=== PATIENT | female | born 1950 | race Caucasian/White ===

== ENCOUNTER → 2021-02-24 14:12 | Outpatient (CLI) | payer MEDICARE, OTHER, SELFPAY ==
--- NOTE | ~2021-02-24 | XR_ITS ---
EXAMINATION: XR shoulder LT min 2V DATE: 02/24/2021 14:38 INDICATION: Left shoulder pain. TECHNIQUE: 4 views of left shoulder were obtained. COMPARISON: None. FINDINGS: Bone alignment is normal. No fracture. There is mild osteoarthritis of acromioclavicular miki int and glenohumeral joint. IMPRESSION: 1. Mild polyarticular osteoarthritis. Reviewed, dictated and finalized at location A.
== END ==
PROVIDERS: PCP Internal Medicine; Visit Provider Internal Medicine
DX: M19.012 Primary osteoarthritis, left shoulder (principal)
CPT/HCPCS: 73030

== ENCOUNTER 2021-07-23 12:50 | Outpatient (CLI) | payer MEDICARE, OTHER, SELFPAY ==
--- NOTE | ~2021-07-23 | DEXA_ITS ---
Bone Density Report Name: Aarti Perales Age: 70 Sex: Female Ethnicity: White Date of : 1950 Indication: monitoring treatment; height loss; cancer; postmenopausal Referring Provider: KADI GUERRA Study: Bone densitometry was performed. Exam Date: July 23, 2021 Accession number: [id number] Bone Density: Region BMD T-score Z-score Classification AP Spine (L1, L2, L3) 0.978 -0.4 1.6 Normal Femoral Neck (Left) 0.843 -0.1 1.7 Normal Total Hip (Left) 0.950 0.1 1.5 Normal Total Hip Bilateral Avg 0.961 0.2 1.6 Normal Femoral Neck (Right) 0.798 -0.5 1.3 Normal Total Hip (Right) 0.972 0.2 1.7 Normal World Health Organization criteria for BMD impression classify patients as: Normal (T-score at or above -1.0), Osteopenia (T-score between -1.0 and -2.5), or Osteoporosis (T-score at or below -2.5). 10-year Fracture Risk: FRAX not reported because: All T-scores for Spine Total, Hip Total, Femoral Neck at or above -1.0 Treated for osteoporosis Previous Exams: Region Exam Age BMD T-score BMD Change BMD Change Date g/cm2 vs Baseline vs Previous AP Spine(L1, L2, L3) 07/23/2021 70 0.978 -0.4 0.014(1.4%) 0.074(8.1%)# 05/23/2019 68 0.904 -1.0 -0.060(-6.2%)# -0.058(-6.0%)* 10/20/2014 64 0.962 -0.5 -0.002(-0.2%)# -0.002(-0.2%)# 10/09/2012 62 0.964 -0.5 Total Hip(Left) 07/23/2021 70 0.950 0.1 -0.028(-2.9%)* 0.035(3.8%)# 05/23/2019 68 0.915 -0.2 -0.063(-6.5%)# -0.077(-7.7%)* 10/20/2014 64 0.992 0.4 0.013(1.4%)# 0.013(1.4%)# 10/09/2012 62 0.979 0.3 Total Hip(Right) 07/23/2021 70 0.972 0.2 -0.032(-3.2%)* 0.024(2.5%)# 05/23/2019 68 0.948 0.1 -0.056(-5.5%)# -0.026(-2.7%) 10/20/2014 64 0.975 0.3 -0.029(-2.9%)# -0.029(-2.9%)# 10/09/2012 62 1.004 0.5 *Denotes significance at 95% confidence level, LSC for AP Spine = 0.022 g/cm2, LSC for Total Hip = 0.027 g/cm2 Clinical Information Provided by Patient: Is being treated for osteoporosis Has used the following medications: Fosamax (i.e. alendronate), Vitamin D, Calcium Has the following medical conditions: Cancer Patient maximum height was 64 Menopause Age: 52 No regular weight bearing exercise Drinks caffeinated beverages Onset of menses at age 15 Number of children 2 Impression: The patient has normal bone mass. No significant bone loss was observed. Discussion: PATIENT UNDER TREATMENT WITH NO SIGNIFICANT BMD LOSS SINCE
== END 2021-07-23 12:51 | disposition home or self-care (01) ==
LOC: ANHIMG 12:53
PROVIDERS: PCP Internal Medicine
DX: C50.419 Malignant neoplasm of upper-outer quadrant of unspecified female breast (principal); Z79.811 Long term (current) use of aromatase inhibitors; M85.851 Other specified disorders of bone density and structure, right thigh
CPT/HCPCS: 77080

== ENCOUNTER 2021-08-04 15:47 | Outpatient (CLI) | payer MEDICARE, OTHER, SELFPAY ==
--- NOTE | ~2021-08-04 | XR_ITS ---
XR lumbar spine min 4V 08/04/2021 16:47 Indication: Low back pain Procedure: 5 views of the lumbar spine Comparison: No prior studies for comparison. Findings: There is disc narrowing at all lumbar levels. There is moderate lower lumbar facet hypertro phy with grade 1 degenerative spondylolisthesis at L5-S1. No significant alteration of alignment with flexion/extension. No acute fracture is identified. There is atherosclerosis of the aorta. Impression: 1: Moderate-severe lower lumbar spondylosis. Reviewed, dictated and finalized at location A. Impression: 1: Moderate-severe lower lumbar spondylosis.
== END 2021-08-04 15:48 | disposition home or self-care (01) ==
LOC: ANHIMG 15:51
PROVIDERS: PCP Internal Medicine; Visit Provider Internal Medicine
DX: M54.9 Dorsalgia, unspecified (principal); M79.604 Pain in right leg; M79.605 Pain in left leg; M47.816 Spondylosis without myelopathy or radiculopathy, lumbar region
CPT/HCPCS: 72110

== ENCOUNTER 2021-10-04 10:56 | Outpatient (CLI) | payer MEDICARE, OTHER, SELFPAY ==
--- NOTE | ~2021-10-04 | MR_ITS ---
EXAMINATION: MR lumbar spine wo con DATE: 10/04/2021 11:38 INDICATION: Lumbar radiculopathy. TECHNIQUE: Magnetic resonance imaging (MRI) of the lumbar spine was performed without intravenous con trast. Sequences included sagittal T2-weighted FSE, sagittal T2-weighted FS FSE, sagittal T1-weighted FSE, and axial T2-weighted FSE. COMPARISON: None FINDINGS: S1 is a transitional segment. There is 4 mm anterolisthesis of L5 on S1. Vertebral body hei ghts are normal. There is moderate thoracic spondylosis. There is mildly decreased disc height at L4- L5 and moderately decreased disc height at L5-S1. The distal spinal cord signal intensity is normal. The conus medullaris is at L1. The following disc levels are specifically discussed: L1-L2: There is a right central protrusion. There is mild bilateral facet joint osteoarthritis. There is no neural foraminal stenosis. There is mild central canal stenosis. L2-L3: The disc does not extend beyond the endplate margin. There is moderate right and mild left fac et joint osteoarthritis. There is no neural foraminal stenosis. There is no central canal stenosis. L3-L4: The disc is mildly bulging. There is moderate bilateral facet joint osteoarthritis. There is m ild left neural foraminal stenosis. There is no central canal stenosis. L4-L5: The disc is bulging. There is severe bilateral facet joint osteoarthritis. There is moderate r ight and mild left neural foraminal stenosis. There is mild central canal stenosis. There is moderate stenosis of the lateral recesses. L5-S1: The disc does not extend beyond the endplate margin. There is severe bilateral facet joint ost eoarthritis. There is mild right and moderate left neural foraminal stenosis. There is mild central c anal stenosis. There is moderate stenosis of the lateral recesses. IMPRESSION: 1. Moderate lumbar spondylosis. Reviewed, dictated and finalized at location A. BAGGING MACHINE OPERATOR
== END 2021-10-04 10:57 | disposition home or self-care (01) ==
LOC: ANHIMG 10:57
PROVIDERS: PCP Internal Medicine; Visit Provider Nurse Practitioner Family
DX: M54.50 Low back pain, unspecified (principal); M47.816 Spondylosis without myelopathy or radiculopathy, lumbar region
CPT/HCPCS: 72148

== ENCOUNTER 2021-10-29 09:08 | Outpatient (CLI) | payer MEDICARE, OTHER, SELFPAY ==
[2021-10-29 10:13] LABS: Basophils Absolute Auto 0.1 K/mm3 (0.0-0.1); Basophils Percent Auto 1.1 % (0.2-1.2); Eosinophils Absolute Auto 0.1 K/mm3 (0-0.3); Eosinophils Percent Auto 1.9 % (0-4.4); Hematocrit 38.6 % (37.0-47.0); Immature Granulocyte Absolute 0.01 K/mm3 (0.00-0.031); Immature Granulocyte Percent A 0.2 % (0-0.5); Lymphocytes Absolute Auto 2.28 K/mm3 (0.9-3.2); Lymphocytes Percent Auto 36.3 % (18.3-44.2); Mean Corpuscular HGB Conc 31.1 g/dl (32-36); Mean Corpuscular Hemoglobin 28.7 pg (26-34); Mean Corpuscular Volume 92.3 fl (80-100); Mean Platelet Volume 10.3 fl (7.4-10.4); Monocytes Absolute Auto 0.4 K/mm3 (0.1-0.6); Monocytes Percent Auto 6.1 % (2.6-8.5); Neutrophils Absolute Auto 3.4 K/mm3 (1.3-6.7); Neutrophils Percent Auto 54.4 % (45.5-73.1); Platelet Count Result 261 k/mm3 (150-375); Red Blood Count 4.18 M/mm3 (4.2-5.4); Red Cell Distribution Width 13.2 % (11.5-14.5); White Blood Count 6.3 K/mm3 (4.5-10.0)
[2021-10-29 10:23] LABS: Add Urine Microscopic? YES; Appearance Urine Clear (Clear); Bilirubin Urine Negative (Negative); Blood Urine 1+ (Negative); Color Urine Colorless (Yellow); Glucose Urine UA 3+ mg/dL (Negative); Ketones Urine Negative (Negative); Leukocyte Esterase Ur Negative LEU/UL (Negative); Mucus Urine Rare /lpf; Nitrate Urine Negative (Negative); Protein Urine Negative (Negative); Squamous Epithelial Cell Urine Rare /hpf (Few); Urobilinogen Urine Negative mg/dL (<2.0); WBC Urine 0-3 /hpf
[2021-10-29 10:24] LABS: Specific Grav Ur 1.002 (1.001-1.035)
[2021-10-29 10:27] LABS: Alanine Aminotransferase 23 U/L (4-35); Albumin Level 4.1 g/dL (3.5-5.1); Alkaline Phosphatase 66 U/L (38-126); Anion Gap 8 mmol/L (8-16); Aspartate Amino Transferase 31 U/L (14-36); Bilirubin,Total 0.4 mg/dL (0.2-1.3); Blood Urea Nitrogen 14 mg/dL (7-17); Calcium 9.4 mg/dL (8.4-10.2); Carbon Dioxide 29 mmol/L (22-30); Chloride 99 mmol/L (98-107); Cholesterol 142 mg/dL (0-200); Estimated Glomerular Filt Rate > 60; Glucose 103 mg/dL (65-110); HDL Direct 35 mg/dL; Potassium 4.2 mmol/L (3.4-5.0); Sodium 136 mmol/L (137-145); Triglycerides 166 mg/dL (<150)
[2021-10-29 10:38] LABS: LDL Cholesterol Direct 72 mg/dL
[2021-10-29 11:19] LABS: Creatinine Urine 26.7 mg/dL
[2021-10-29 11:34] LABS: Free T4 Free Thyroxine 1.74 ng/mL (0.78-2.19); Vitamin D 25 Hydroxy 83.2 ng/mL
[2021-10-29 12:30] LABS: Microalbumin Urine Random < 6.0 mg/L (0-16.7)
[2021-10-29 12:40] LABS: Hemoglobin A1C 6.7 % (<5.7)
[2021-11-02 12:35] LABS: Apolipoprotein B 81 mg/dL (<90)
== END 2021-10-29 09:09 | disposition home or self-care (01) ==
PROVIDERS: PCP Internal Medicine; Visit Provider Internal Medicine
DX: E55.9 Vitamin D deficiency, unspecified (principal); E78.1 Pure hyperglyceridemia; I10 Essential (primary) hypertension; Z51.81 Encounter for therapeutic drug level monitoring; Z79.899 Other long term (current) drug therapy
CPT/HCPCS: 36415; 80053; 80061; 81001; 82043; 82172; 82306; 83036; 84439; 84443; 85025; 99212; G0463

== ENCOUNTER 2021-12-09 10:48 | Outpatient (CLI) | payer MEDICARE, OTHER, SELFPAY ==
--- NOTE | ~2021-12-09 | US_ITS ---
EXAMINATION: US carotid duplex BI DATE: 12/09/2021 12:01 INDICATION: Other specified symptoms and signs. TECHNIQUE: Grayscale, color Doppler, and pulsed Doppler images of the cervical carotid arteries were obtained. The degree of vessel stenosis is placed in one of the following categories: normal, <50%, 5 0-69%, >=70% but less than near-occlusion, near-occlusion, or total occlusion. Note that percent sten osis relative to normal distal artery lumen diameter is indirectly measured from velocity measurement s as described by Mario, et al. Radiology 2003; 229:340-346. COMPARISON: Head CT 12/21/2018 FINDINGS: RIGHT: The right common carotid artery (CCA) peak systolic velocity (PSV) is 112 cm/s. The right internal ca rotid artery (ICA) PSV is 95 cm/s. The right ICA end-diastolic velocity (EDV) is 17 cm/s. The right I CA/CCA PSV ratio is 1.2. Grayscale and color Doppler images yield an estimate of <50% diameter reduct ion from plaque in the ICA. There is antegrade flow in the right vertebral artery. LEFT: The left CCA PSV is 87 cm/s. The left ICA PSV is 69 cm/s. The left ICA EDV is 20 cm/s. The left ICA/C CA PSV ratio is 1.3. Grayscale and color Doppler images yield an estimate of <50% diameter reduction from plaque in the ICA. There is antegrade flow in the left vertebral artery. IMPRESSION: 1. <50% stenosis in the right internal carotid artery. 2. <50% stenosis in the left internal carotid artery. Reviewed, dictated and finalized at location B. WAREHOUSING ENGINEER
== END 2021-12-09 10:49 | disposition home or self-care (01) ==
LOC: ANHIMG 10:49
PROVIDERS: PCP Internal Medicine; Visit Provider Internal Medicine
DX: R09.89 Other specified symptoms and signs involving the circulatory and respiratory systems (principal); I65.23 Occlusion and stenosis of bilateral carotid arteries
CPT/HCPCS: 93880

== ENCOUNTER 2021-12-10 09:20 | Outpatient (CLI) | payer MEDICARE, OTHER, SELFPAY ==
--- NOTE | 2021-12-10 09:40 | ECHO_ITS ---
Patient Info Name: Aarti Perales Age: 71 years : 1950 Gender: Female Ht: 64 in Wt: 185 lbs BSA: 1.98 m2 HR: 69 bpm BP: 155 / 83 mmHg Technical Quality: Good Exam Date: 12/10/2021 10:42 AM Exam Location: [facility] Pulmonary Patient Status: Outpatient Admit Date: 12/10/2021 Staff Ordering Physician: Jose Mace MD Glass Maker: Leena Pritchett RDCS Attending Provider: Jose Mace MD Referring Physician: Nakita CHIRINOS; Exam Type: CA echo doppler color flow Study Info Indications R01.1 - cardiac murmur Complete two-dimensional, color flow and Doppler transthoracic echocardiogram is performed. Summary 1. Complete two-dimensional, color flow and Doppler transthoracic echocardiogram is performed. 2. Left ventricular chamber dimension is normal. 3. Left ventricular systolic function is normal, estimated at 60-65%. 4. The left ventricular diastolic function is grade I diastolic dysfunction. 5. E/e' 11 is mildly elevated. 6. There is mild aortic valve sclerosis. 7. There is trace tricuspid valve regurgitation. 8. No pulmonary hypertension, estimated pulmonary arterial systolic pressure is 29 mmHg. Left Ventricle E/e' 11 is mildly elevated. Left ventricular chamber dimension is normal. Left ventricular systolic function is normal, estimated at 60-65%. The left ventricular diastolic function is grade I diastolic dysfunction. Right Ventricle Right ventricular chamber dimension is normal. Right ventricular systolic function is normal. Left Atria Left atrial chamber dimension is normal. Right Atria Right atrial chamber dimension is normal. Aortic Valve The aortic valve is trileaflet. There is mild aortic valve sclerosis. There is no aortic valve stenosis. There is no aortic valve regurgitation. Pulmonic Valve There is no pulmonic regurgitation. Mitral Valve There is no mitral valve stenosis. There is no mitral valve regurgitation. Tricuspid Valve There is trace tricuspid valve regurgitation. No pulmonary hypertension, estimated pulmonary arterial systolic pressure is 29 mmHg. Pericardium/Pleural There is no pericardial effusion. Inferior Vena Cava Normal inferior vena cava with >50% collapse upon inspiration consistent with normal right atrial pressure, 5 mmHg. Aorta The aortic root size at the sinus of Valsalva is normal. Left Ventricular Outflow Tract Name Value Normal LVOT 2D LVOT Diameter 2.0 cm LVOT Doppler LVOT Peak Gradient 6 mmHg LVOT Mean Gradient 3 mmHg LVOT VTI 26 cm LVOT VTI/AV VTI Ratio 0.8 LVOT Stroke Volume 84 ml Pulmonic Valve Name Value Normal PV Doppler PV Peak Gradient 3 mmHg Mitral Valve
== END 2021-12-10 09:21 | disposition home or self-care (01) ==
LOC: ANHCARD 09:21
PROVIDERS: PCP Internal Medicine; Visit Provider Internal Medicine
DX: R01.1 Cardiac murmur, unspecified (principal); I10 Essential (primary) hypertension; I35.8 Other nonrheumatic aortic valve disorders; Z79.899 Other long term (current) drug therapy
CPT/HCPCS: 93306

== ENCOUNTER 2022-03-18 09:23 | Outpatient (CLI) | payer MEDICARE, OTHER, SELFPAY ==
[2022-03-18 10:24] LABS: Alanine Aminotransferase 21 U/L (4-35); Albumin Level 4.1 g/dL (3.5-5.1); Alkaline Phosphatase 68 U/L (38-126); Anion Gap 9 mmol/L (8-16); Aspartate Amino Transferase 31 U/L (14-36); Bilirubin,Total 0.4 mg/dL (0.2-1.3); Blood Urea Nitrogen 11 mg/dL (7-17); Calcium 9.1 mg/dL (8.4-10.2); Carbon Dioxide 28 mmol/L (22-30); Chloride 102 mmol/L (98-107); Cholesterol 129 mg/dL (0-200); Estimated Glomerular Filt Rate > 60; Glucose 99 mg/dL (65-110); HDL Direct 36 mg/dL; Potassium 3.7 mmol/L (3.4-5.0); Sodium 139 mmol/L (137-145); Triglycerides 150 mg/dL (<150)
[2022-03-18 10:27] LABS: Hemoglobin A1C 6.4 % (<5.7)
[2022-03-18 10:35] LABS: LDL Cholesterol Direct 53 mg/dL
== END 2022-03-18 09:24 | disposition home or self-care (01) ==
PROVIDERS: PCP Internal Medicine; Visit Provider Internal Medicine
DX: E11.9 Type 2 diabetes mellitus without complications (principal); E78.1 Pure hyperglyceridemia; I10 Essential (primary) hypertension; Z79.899 Other long term (current) drug therapy
CPT/HCPCS: 36415; 80053; 80061; 83036; 99212; G0463

== ENCOUNTER 2022-09-29 10:04 | Outpatient (CLI) | payer MEDICARE, OTHER, SELFPAY ==
[2022-09-29 11:20] LABS: Alanine Aminotransferase 23 U/L (6-35); Albumin Level 4.4 g/dL (3.5-5.1); Alkaline Phosphatase 79 U/L (38-126); Anion Gap 12 mmol/L (8-16); Aspartate Amino Transferase 33 U/L (14-36); Bilirubin,Total 0.5 mg/dL (0.2-1.3); Blood Urea Nitrogen 16 mg/dL (7-17); Calcium 8.9 mg/dL (8.4-10.2); Carbon Dioxide 28 mmol/L (22-30); Chloride 99 mmol/L (98-107); Cholesterol 136 mg/dL (0-200); Estimated Glomerular Filt Rate > 60; Glucose 100 mg/dL (65-110); HDL Direct 45 mg/dL; Potassium 4.2 mmol/L (3.4-5.0); Sodium 139 mmol/L (137-145); Triglycerides 104 mg/dL (<150)
[2022-09-29 11:31] LABS: LDL Cholesterol Direct 66 mg/dL
[2022-09-29 11:49] LABS: Thyroid Stimulating Hormone 0.626 uIU/mL (0.465-4.680)
[2022-09-29 11:57] LABS: Creatinine Urine 33.7 mg/dL
[2022-09-29 12:07] LABS: MALB Creatinine Ratio < 17.8 mg/g (0-30); Microalbumin Urine Random < 6.0 mg/L (0-16.7)
[2022-09-29 12:55] LABS: Free T4 Free Thyroxine 1.31 ng/mL (0.78-2.19)
== END 2022-09-29 10:05 | disposition home or self-care (01) ==
LOC: ANHLAB 10:07
PROVIDERS: PCP Internal Medicine; Visit Provider Internal Medicine
DX: E78.5 Hyperlipidemia, unspecified (principal); E11.9 Type 2 diabetes mellitus without complications; Z79.899 Other long term (current) drug therapy; Z13.29 Encounter for screening for other suspected endocrine disorder; I10 Essential (primary) hypertension
CPT/HCPCS: 36415; 80053; 80061; 82043; 84439; 84443; 99212; G0463

== ENCOUNTER 2023-01-11 09:01 | Outpatient (CLI) | payer MEDICARE, OTHER, SELFPAY ==
[2023-01-11 09:36] LABS: Basophils Absolute Auto 0.1 K/mm3 (0.0-0.1); Basophils Percent Auto 0.9 % (0.2-1.2); Eosinophils Absolute Auto 0.1 K/mm3 (0-0.3); Eosinophils Percent Auto 1.4 % (0-4.4); Hematocrit 37.9 % (37.0-47.0); Hemoglobin 11.7 g/dL (12.0-15.0); Immature Granulocyte Absolute 0.02 K/mm3 (0.00-0.031); Immature Granulocyte Percent A 0.3 % (0-0.5); Lymphocytes Absolute Auto 2.24 K/mm3 (0.9-3.2); Lymphocytes Percent Auto 38.1 % (18.3-44.2); Mean Corpuscular HGB Conc 30.9 g/dl (32-36); Mean Corpuscular Hemoglobin 28.1 pg (26-34); Mean Corpuscular Volume 90.9 fl (80-100); Mean Platelet Volume 10.2 fl (7.4-10.4); Monocytes Absolute Auto 0.3 K/mm3 (0.1-0.6); Monocytes Percent Auto 4.4 % (2.6-8.5); Neutrophils Absolute Auto 3.2 K/mm3 (1.3-6.7); Neutrophils Percent Auto 54.9 % (45.5-73.1); Platelet Count Result 269 k/mm3 (150-375); Red Blood Count 4.17 M/mm3 (4.2-5.4); Red Cell Distribution Width 13.3 % (11.5-14.5); White Blood Count 5.9 K/mm3 (4.5-10.0)
[2023-01-11 09:48] LABS: Alanine Aminotransferase 19 U/L (6-35); Albumin Level 4.3 g/dL (3.5-5.1); Alkaline Phosphatase 76 U/L (38-126); Anion Gap 7 mmol/L (8-16); Aspartate Amino Transferase 25 U/L (14-36); Bilirubin,Total 0.5 mg/dL (0.2-1.3); Blood Urea Nitrogen 12 mg/dL (7-17); Carbon Dioxide 32 mmol/L (22-30); Chloride 100 mmol/L (98-107); Cholesterol 147 mg/dL (0-200); Estimated Glomerular Filt Rate > 60; Glucose 103 mg/dL (65-110); HDL Direct 52 mg/dL; Potassium 4.2 mmol/L (3.4-5.0); Sodium 139 mmol/L (137-145); Triglycerides 106 mg/dL (<150)
[2023-01-11 09:51] LABS: Hemoglobin A1C 6.2 % (<5.7)
[2023-01-11 09:59] LABS: LDL Cholesterol Direct 64 mg/dL
[2023-01-11 10:11] LABS: Free T4 Free Thyroxine 1.21 ng/mL (0.78-2.19); Vitamin D 25 Hydroxy 74.9 ng/mL
== END 2023-01-11 09:02 | disposition home or self-care (01) ==
LOC: ANHLAB 09:02
PROVIDERS: PCP Internal Medicine; Visit Provider Internal Medicine
DX: E11.9 Type 2 diabetes mellitus without complications (principal); E78.5 Hyperlipidemia, unspecified; Z13.29 Encounter for screening for other suspected endocrine disorder; I10 Essential (primary) hypertension; E55.9 Vitamin D deficiency, unspecified; Z79.899 Other long term (current) drug therapy
CPT/HCPCS: 36415; 80053; 80061; 82306; 83036; 84439; 84443; 85025; 99212; G0463

== ENCOUNTER 2023-07-10 08:58 | Outpatient (CLI) | payer MEDICARE, OTHER, SELFPAY ==
[2023-07-10 10:06] LABS: Basophils Percent Auto 0.1 % (0.2-1.2); Eosinophils Absolute Auto 0.1 K/mm3 (0-0.3); Eosinophils Percent Auto 1.1 % (0-4.4); Hematocrit 36.3 % (37.0-47.0); Hemoglobin 11.5 g/dL (12.0-15.0); Immature Granulocyte Absolute 0.03 K/mm3 (0.00-0.031); Immature Granulocyte Percent A 0.4 % (0-0.5); Lymphocytes Absolute Auto 2.35 K/mm3 (0.9-3.2); Mean Corpuscular HGB Conc 31.7 g/dl (32-36); Mean Corpuscular Hemoglobin 29.8 pg (26-34); Mean Platelet Volume 9.8 fl (7.4-10.4); Monocytes Absolute Auto 0.4 K/mm3 (0.1-0.6); Monocytes Percent Auto 4.9 % (2.6-8.5); Neutrophils Percent Auto 63.5 % (45.5-73.1); Platelet Count Result 289 k/mm3 (150-375); Red Blood Count 3.86 M/mm3 (4.2-5.4); Red Cell Distribution Width 12.7 % (11.5-14.5); White Blood Count 7.8 K/mm3 (4.5-10.0)
[2023-07-10 10:18] LABS: Alanine Aminotransferase 16 U/L (6-35); Albumin Level 4.3 g/dL (3.5-5.1); Alkaline Phosphatase 59 U/L (38-126); Anion Gap 5 mmol/L (8-16); Aspartate Amino Transferase 24 U/L (14-36); Bilirubin,Total 0.5 mg/dL (0.2-1.3); Blood Urea Nitrogen 15 mg/dL (7-17); Calcium 9.1 mg/dL (8.4-10.2); Carbon Dioxide 31 mmol/L (22-30); Chloride 91 mmol/L (98-107); Cholesterol 124 mg/dL (0-200); Estimated Glomerular Filt Rate 49; Glucose 97 mg/dL (65-110); HDL Direct 42 mg/dL; Potassium 4.3 mmol/L (3.4-5.0); Sodium 127 mmol/L (137-145); Triglycerides 171 mg/dL (<150)
[2023-07-10 10:29] LABS: LDL Cholesterol Direct 55 mg/dL
[2023-07-10 10:47] LABS: Creatinine Urine 30.7 mg/dL
[2023-07-10 10:47] LABS: Thyroid Stimulating Hormone 0.947 uIU/mL (0.465-4.680)
[2023-07-10 11:35] LABS: MALB Creatinine Ratio < 19.5 mg/g (0-30); Microalbumin Urine Random < 6.0 mg/L (0-16.7)
== END 2023-07-10 08:59 | disposition home or self-care (01) ==
PROVIDERS: PCP Internal Medicine; Visit Provider Internal Medicine
DX: E78.5 Hyperlipidemia, unspecified (principal); I10 Essential (primary) hypertension; Z79.899 Other long term (current) drug therapy; Z13.29 Encounter for screening for other suspected endocrine disorder; E11.9 Type 2 diabetes mellitus without complications
CPT/HCPCS: 36415; 80053; 80061; 82043; 83036; 84439; 84443; 85025; 99212; G0463

== ENCOUNTER 2023-09-05 10:47 | Outpatient (CLI) | payer MEDICARE, OTHER, SELFPAY ==
[2023-09-05 11:49] LABS: CRP 1.3 mg/dL (<1.0)
[2023-09-05 11:53] LABS: Complement C3 123 mg/dL (88-165)
[2023-09-05 11:57] LABS: Erythrocyte Sedimentation Rate 18 mm/hr (0-20)
[2023-09-08 17:41] LABS: Complement Total CH50 64 U/mL (31-60)
== END 2023-09-05 10:48 | disposition home or self-care (01) ==
PROVIDERS: PCP Internal Medicine; Visit Provider Internal Medicine
DX: L50.9 Urticaria, unspecified (principal); R21 Rash and other nonspecific skin eruption
CPT/HCPCS: 36415; 85652; 86003; 86140; 86160; 86162

== ENCOUNTER 2023-11-01 12:59 | Outpatient (CLI) | payer MEDICARE, OTHER, SELFPAY ==
--- NOTE | ~2023-11-01 | MR_ITS ---
MRI of the brain Clinical History: Syncope Technique: Axial and sagittal T1-weighted images were acquired. These were followed by axial T2-weigh yovanny, diffusion weighted, gradient, and FLAIR images. Following intravenous administration of 14 cc Mu ltiHance gadolinium, T1-weighted fat-sat imaging was performed in the axial, coronal, and sagittal pl anes. Findings: There is no acute infarct, intracranial hemorrhage, or mass lesion. There are mild chronic white matter changes in the periventricular white matter bilaterally. Ventricles and subarachnoid spaces are unremarkable. Orbits are unremarkable. Paranasal sinuses and m astoid air cells are clear. Major intracranial flow voids appear intact. Sagittal midline structures are intact. No abnormal postcontrast enhancement identified. IMPRESSION: Mild chronic microvascular ischemic changes, otherwise unremarkable exam. Reviewed, dictated and finalized at location . ARCH CONTRACTS SUPERVISOR
== END 2023-11-01 13:00 | disposition home or self-care (01) ==
PROVIDERS: PCP Internal Medicine; Visit Provider Internal Medicine
DX: R41.89 Other symptoms and signs involving cognitive functions and awareness (principal); R55 Syncope and collapse
CPT/HCPCS: 70553; A9577

== ENCOUNTER 2023-11-02 08:44 | Outpatient (CLI) | payer MEDICARE, OTHER, SELFPAY ==
--- NOTE | 2023-11-02 08:57 | ECHO_ITS ---
Patient Info Name: Aarti Perales Age: 73 years : 1950 Gender: Female Ht: 63 in Wt: 162 lbs BSA: 1.83 m2 HR: 85 bpm BP: 122 / 73 mmHg Technical Quality: Fair Exam Date: 11/02/2023 9:06 AM Exam Location: Echo Lab Patient Status: Outpatient Admit Date: 11/02/2023 Staff Ordering Physician: Jose Mace MD Nutrition Faculty Member: Leena Pritchett RDCS Attending Provider: Jose Mace MD Referring Physician: Nakita CHIRINOS; Exam Type: CA echo doppler color flow Study Info Indications - syncope /collaspe Complete two-dimensional, color flow and Doppler transthoracic echocardiogram is performed. Summary 1. Complete two-dimensional, color flow and Doppler transthoracic echocardiogram is performed. 2. Left ventricular chamber dimension is normal. 3. Left ventricular systolic function is normal, estimated at 60-65%. 4. The left ventricular diastolic function is grade I diastolic dysfunction. 5. E/e' 8 is minimally elevated. 6. Left atrial chamber dimension is mildly enlarged. 7. There is mild to moderate tricuspid valve regurgitation. 8. No pulmonary hypertension, estimated pulmonary arterial systolic pressure is 30 mmHg. Left Ventricle E/e' 8 is minimally elevated. Left ventricular chamber dimension is normal. Left ventricular systolic function is normal, estimated at 60-65%. The left ventricular diastolic function is grade I diastolic dysfunction. Right Ventricle Right ventricular chamber dimension is normal. Right ventricular systolic function is normal. Left Atria Left atrial chamber dimension is mildly enlarged. Right Atria Right atrial chamber dimension is normal. Aortic Valve The aortic valve is trileaflet. There is no aortic valve stenosis. There is no aortic valve regurgitation. Pulmonic Valve There is no pulmonic regurgitation. Mitral Valve There is no mitral valve stenosis. There is no mitral valve regurgitation. Tricuspid Valve There is mild to moderate tricuspid valve regurgitation. No pulmonary hypertension, estimated pulmonary arterial systolic pressure is 30 mmHg. Pericardium/Pleural There is no pericardial effusion. Inferior Vena Cava Normal inferior vena cava with >50% collapse upon inspiration consistent with normal right atrial pressure, 5 mmHg. Aorta The aortic root size at the sinus of Valsalva is normal. Left Ventricular Outflow Tract Name Value Normal LVOT 2D LVOT Diameter 2.0 cm LVOT Doppler LVOT Peak Gradient 5 mmHg LVOT Mean Gradient 3 mmHg LVOT VTI 22 cm LVOT VTI/AV VTI Ratio 0.9 LVOT Stroke Volume 66 ml LVOT CO 15.6 l/min LVOT CI 8.5 l/min/m2 Pulmonic Valve Name Value Normal RVOT Doppler RVOT Peak Gradient 1 mmHg PV Doppler
--- NOTE | 2023-11-08 11:06 | WPDHOLTEREM ---
Holter/Event Monitor Holter/Event Monitor Date of procedure: 11/08/23 Holter/Event Procedure: 48 Hr Holter Monitor Diagnosis: Syncope and collapse Indications: Syncope and collapse Image/Tracing Quality: 48 hour Holter Finding: A total of 47 hours and 59 minutes was recorded and analyzed Underlying sinus rhythm with heart rate variability between 51 and 124 beats per minute with an average heart rate of 79 beats per minute. Low frequency of ventricular ectopy totaling 30 PVCs and 1 ventricular couplet. No sustained or nonsustained runs of ventricular arrhythmia Low-frequency supraventricular ectopy totaling 79 beats. This consisted of 113 beat atrial run at a rate of 140 beats per minute. There were also 2 couplets and 59 isolated premature atrial contractions. Three beat run a pattern of atrial bigeminy. Longest RR interval was 1.3 seconds. Low complex arrhythmia, heart block or pauses. No patient triggered events noted Conclusion: 1. Unremarkable 48 hour Holter monitor with average heart rate of 79 beats per minute and in sinus rhythm. 2. No significant pauses or heart block 3. Low frequency ventricular ectopy 4. Low frequency supraventricular ectopy including one13 beat run of PSVT at a rate of 140 beats per minute 5. No patient triggered events noted
== END 2023-11-02 08:45 | disposition home or self-care (01) ==
LOC: ANHCARD 08:44
PROVIDERS: PCP Internal Medicine; Visit Provider Internal Medicine
DX: R55 Syncope and collapse (principal); I07.1 Rheumatic tricuspid insufficiency
CPT/HCPCS: 93225; 93226; 93306

== ENCOUNTER 2023-11-24 08:55 | Outpatient (CLI) | payer MEDICARE, OTHER, SELFPAY ==
[2023-11-24 09:44] LABS: Alanine Aminotransferase 16 U/L (6-35); Alkaline Phosphatase 61 U/L (38-126); Anion Gap 6 mmol/L (8-16); Aspartate Amino Transferase 26 U/L (14-36); Bilirubin,Total 0.5 mg/dL (0.2-1.3); Blood Urea Nitrogen 20 mg/dL (7-17); Calcium 9.7 mg/dL (8.4-10.2); Carbon Dioxide 32 mmol/L (22-30); Chloride 96 mmol/L (98-107); Cholesterol 142 mg/dL (0-200); Estimated Glomerular Filt Rate > 60; Glucose 98 mg/dL (65-110); HDL Direct 44 mg/dL; Potassium 4.3 mmol/L (3.4-5.0); Sodium 134 mmol/L (137-145); Triglycerides 193 mg/dL (<150)
[2023-11-24 09:54] LABS: LDL Cholesterol Direct 63 mg/dL
[2023-11-24 11:09] LABS: Hemoglobin A1C 6.2 % (<5.7)
== END 2023-11-24 08:56 | disposition home or self-care (01) ==
PROVIDERS: PCP Internal Medicine; Visit Provider Internal Medicine
DX: E11.9 Type 2 diabetes mellitus without complications (principal); E78.5 Hyperlipidemia, unspecified; I10 Essential (primary) hypertension
CPT/HCPCS: 36415; 80053; 80061; 83036; 99212; G0463

== ENCOUNTER 2024-01-08 10:54 | Outpatient (CLI) | payer MEDICARE, OTHER, SELFPAY | END 2024-01-08 10:55 | disposition home or self-care (01) | LOC: ANHAUDIO 10:55 | PROVIDERS: PCP Internal Medicine; Visit Provider Internal Medicine | DX: H90.3 Sensorineural hearing loss, bilateral (principal); H90.A21 Sensorineural hearing loss, unilateral, right ear, with restricted hearing on the contralateral side | CPT/HCPCS: 92557; 92567 ==

== ENCOUNTER 2024-01-17 11:34 | Outpatient (CLI) | payer MEDICARE, OTHER, SELFPAY | END 2024-01-17 11:35 | disposition home or self-care (01) | LOC: ANHLAB 11:37 | PROVIDERS: PCP Internal Medicine; Visit Provider Allergy & Immunology | DX: L50.1 Idiopathic urticaria (principal) | CPT/HCPCS: 36415; 86038 ==

== ENCOUNTER 2024-04-30 11:16 | Outpatient (CLI) | payer MEDICARE, OTHER, SELFPAY ==
[2024-04-30 11:44] LABS: Eosinophils Absolute Auto 0.1 K/mm3 (0-0.3); Hematocrit 33.6 % (37.0-47.0); Hemoglobin 10.5 g/dL (12.0-15.0); Immature Granulocyte Absolute 0.01 K/mm3 (0.00-0.031); Immature Granulocyte Percent A 0.2 % (0-0.5); Lymphocytes Absolute Auto 2.56 K/mm3 (0.9-3.2); Lymphocytes Percent Auto 41.5 % (18.3-44.2); Mean Corpuscular HGB Conc 31.3 g/dl (32-36); Mean Corpuscular Volume 89.6 fl (80-100); Mean Platelet Volume 10.3 fl (7.4-10.4); Monocytes Absolute Auto 0.3 K/mm3 (0.1-0.6); Monocytes Percent Auto 5.5 % (2.6-8.5); Neutrophils Absolute Auto 3.2 K/mm3 (1.3-6.7); Neutrophils Percent Auto 51.8 % (45.5-73.1); Platelet Count Result 241 k/mm3 (150-375); Red Blood Count 3.75 M/mm3 (4.2-5.4); Red Cell Distribution Width 13.7 % (11.5-14.5); White Blood Count 6.2 K/mm3 (4.5-10.0)
[2024-04-30 12:05] LABS: Alanine Aminotransferase 14 U/L (6-35); Albumin Level 4.6 g/dL (3.5-5.1); Alkaline Phosphatase 69 U/L (38-126); Anion Gap 7 mmol/L (4-12); Aspartate Amino Transferase 26 U/L (14-36); Bilirubin,Total 0.6 mg/dL (0.2-1.3); Blood Urea Nitrogen 17 mg/dL (7-17); Calcium 9.4 mg/dL (8.4-10.2); Carbon Dioxide 29 mmol/L (22-30); Chloride 100 mmol/L (98-107); Cholesterol 127 mg/dL (0-200); Estimated Glomerular Filt Rate 55; Glucose 101 mg/dL (65-110); HDL Direct 49 mg/dL; Potassium 4.4 mmol/L (3.4-5.0); Sodium 136 mmol/L (137-145); Triglycerides 141 mg/dL (<150)
[2024-04-30 12:14] LABS: Appearance Urine Clear (Clear); Bacteria Urine None Seen /hpf; Bilirubin Urine Negative (Negative); Blood Urine Negative (Negative); Color Urine Yellow (Yellow); Glucose Urine UA Negative (Negative); Ketones Urine Negative (Negative); Leukocyte Esterase Ur Trace LEU/UL (Negative); Nitrate Urine Negative (Negative); Non Pathogenic Casts 0-2; Protein Urine Negative (Negative); RBC Urine 0-2 /hpf (0-2); Specific Grav Ur 1.007 (1.001-1.035); Squamous Epithelial Cell Urine None Seen /hpf (Few); Urobilinogen Urine 0.2 mg/dL (<2.0); WBC Urine 0-5 /hpf (0-3); pH Urine 6.5 (5.0-9.0)
[2024-04-30 12:15] LABS: Add Urine Microscopic? YES
[2024-04-30 12:16] LABS: LDL Cholesterol Direct 58 mg/dL
[2024-04-30 12:34] LABS: Hemoglobin A1C 5.8 % (<5.7); Thyroid Stimulating Hormone 0.687 uIU/mL (0.465-4.680)
[2024-04-30 12:56] LABS: Free T4 Free Thyroxine 1.07 ng/mL (0.78-2.19); Vitamin D 25 Hydroxy 70.9 ng/mL
[2024-04-30 15:41] LABS: Iron 83 ug/dL (37-170)
[2024-04-30 15:53] LABS: Percent Iron Saturation 18 % (20-50)
[2024-04-30 16:18] LABS: Ferritin 7.45 ng/mL (11.1-264)
== END 2024-04-30 11:17 | disposition home or self-care (01) ==
LOC: ANHLAB 11:20
PROVIDERS: PCP Internal Medicine; Visit Provider Internal Medicine
DX: D64.9 Anemia, unspecified (principal); E55.9 Vitamin D deficiency, unspecified; Z13.29 Encounter for screening for other suspected endocrine disorder; Z79.899 Other long term (current) drug therapy; E78.5 Hyperlipidemia, unspecified; E11.9 Type 2 diabetes mellitus without complications; I10 Essential (primary) hypertension
CPT/HCPCS: 36415; 80053; 80061; 81001; 82306; 82728; 83036; 83540; 83550; 84439; 84443; 85025

== ENCOUNTER 2024-09-06 11:57 | Outpatient (CLI) | payer MEDICARE, OTHER, SELFPAY ==
[2024-09-06 12:54] LABS: Alanine Aminotransferase 20 U/L (6-35); Albumin Level 4.3 g/dL (3.5-5.1); Alkaline Phosphatase 71 U/L (38-126); Anion Gap 10 mmol/L (4-12); Aspartate Amino Transferase 32 U/L (14-36); Bilirubin,Total 0.4 mg/dL (0.2-1.3); Blood Urea Nitrogen 13 mg/dL (7-17); Calcium 9.2 mg/dL (8.4-10.2); Carbon Dioxide 28 mmol/L (22-30); Chloride 98 mmol/L (98-107); Cholesterol 146 mg/dL (0-200); Estimated Glomerular Filt Rate > 60; Glucose 113 mg/dL (65-110); HDL Direct 46 mg/dL; Potassium 4.7 mmol/L (3.4-5.0); Sodium 136 mmol/L (137-145); Triglycerides 159 mg/dL (<150)
[2024-09-06 13:04] LABS: LDL Cholesterol Direct 59 mg/dL
[2024-09-06 13:10] LABS: Hemoglobin A1C 6.1 % (<5.7)
== END 2024-09-06 11:58 | disposition home or self-care (01) ==
LOC: ANHLAB 12:02
PROVIDERS: PCP Internal Medicine; Visit Provider Internal Medicine
DX: I10 Essential (primary) hypertension (principal); E11.9 Type 2 diabetes mellitus without complications; E78.5 Hyperlipidemia, unspecified
CPT/HCPCS: 36415; 80053; 80061; 83036

== ENCOUNTER 2025-01-21 09:26 | Outpatient (CLI) | payer MEDICARE, OTHER, SELFPAY ==
[2025-01-21 10:17] LABS: Basophils Percent Auto 0.1 % (0.2-1.2); Eosinophils Absolute Auto 0.1 K/mm3 (0-0.3); Eosinophils Percent Auto 1.1 % (0-4.4); Hematocrit 33.4 % (37.0-47.0); Hemoglobin 10.1 g/dL (12.0-15.0); Immature Granulocyte Absolute 0.02 K/mm3 (0.00-0.031); Immature Granulocyte Percent A 0.3 % (0-0.5); Lymphocytes Absolute Auto 2.38 K/mm3 (0.9-3.2); Mean Corpuscular HGB Conc 30.2 g/dl (32-36); Mean Corpuscular Hemoglobin 27.7 pg (26-34); Mean Corpuscular Volume 91.5 fl (80-100); Mean Platelet Volume 10.9 fl (7.4-10.4); Monocytes Absolute Auto 0.5 K/mm3 (0.1-0.6); Monocytes Percent Auto 6.2 % (2.6-8.5); Neutrophils Absolute Auto 4.3 K/mm3 (1.3-6.7); Neutrophils Percent Auto 59.3 % (45.5-73.1); Platelet Count Result 283 k/mm3 (150-375); Red Blood Count 3.65 M/mm3 (4.2-5.4); Red Cell Distribution Width 12.7 % (11.5-14.5); White Blood Count 7.2 K/mm3 (4.5-10.0)
--- OUTSIDE RECORDS SUMMARY | 2025-01-21 10:27 | XMS_ITS | Encounter Summary ---
Author Organization [facility] Address [address] [place] [address] Phone Care Team Providers Care Cheese Specialist Name Role Phone Jose Mace MD Primary Care Provider [phone] Pao Dietrich PIPE LINE REPAIRER Unavailable [phone] Encounter Details Date Type Department Care Team (Latest Contact Info) Description 07/23/2021 Orders Only [facility] Scanning, Provider Social History Tobacco Use Types Packs/Day Years Used Date Smoking Tobacco: Never Smokeless Tobacco: Never Alcohol Use Standard Drinks/Week Comments Never 0 (1 standard drink = 0.6 oz pur e alcohol) AUDIT-C Answer Date Recorded Frequency of Alcohol Consumption Never 05/21/2019 Average Number of Drinks Not on file 019 Frequency of Binge Drinking Not on file 04/28 Comments No Sex and Gender Information Value Date Recorded Sex Assigned at Not on file Legal Sex Female 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 Gender Identity Not on file Sexual Orientation Not on file Occupation Industry Job Start Date Job End Date Homemaker Not on file Not on file Not on file documented as of this encounter Plan of Treatment Not on file documented as of this encounter Procedures Procedure Name Priority Date/Time Associated Diagnosis Comments SCAN - RADIOLOGY/IMAGING 07/23/2021 documented in this encounter Results * SCAN - RADIOLOGY/IMAGING (07/23/2021) Anatomical Region Laterality Modality Other us Provider Scanning Final Result documented in this encounter Visit Diagnoses Not on filedocumented in this encounter Care Teams Cheese Specialist Relationship Specialty Start Date End Date Jose Mace MD [address] [place] [address] PCP - General 02/01/18 Pao Dietrich NP [address] [place] [address] Nurse Practitioner Medical Oncology 05/19/20 documented as of this encounter
--- OUTSIDE RECORDS SUMMARY | 2025-01-21 10:27 | XMS_ITS | Encounter Summary ---
Author Organization [facility] Address [address] [place] [address] Phone Care Team Providers Care Bounty Trapper Name Role Phone Jose Mace MD Primary Care Provider [phone] Pao Dietrich RETAIL LOSS PREVENTION INVESTIGATOR Unavailable [phone] Encounter Details Date Type Department Care Team (Late st Contact Info) Description 05/27/2019 Telephone [facility] Oncology [address] [place] [address] Eloise White Social History Tobacco Use Types Packs/Day Years [...] on file Legal Sex Female 8:09 PM PULLER THROUGH Gender Identity Not on file Sexual Orientation Not on file Occupation Industry Job Start Date Job End Date Homemaker Not on file Not on file Not on file documented as of this encounter Plan of Treatment Not on file documented as of this encounter Visit Diagnoses Not on filedocumented in this encounter Care Teams Bounty Trapper Relationship Specialty Start Date End Date Jose Mace MD [address] [facility] [address] [place] [id number] PCP - General 02/01/18 Pao Dietrich NP [address] [facility] [address] [place] [place] [address] [place] [address] Nurse Practitioner Medical Oncology 05/19/20 documented as of this encounter
--- OUTSIDE RECORDS SUMMARY | 2025-01-21 10:27 | XMS_ITS | Encounter Summary ---
Author Organization [facility] Address [address] [place] [address] Phone Care Team Providers Care Economics Analyst Name Role Phone Jose Mace MD Primary Care Provider [phone] Pao Dietrich EXERCISE PHYSIOLOGY PROFESSOR Unavailable Reason for Visit * Reason Onset Date Comments PROVIDER & SCHEDULE UPDATE 03/28/2019 Encounter Details Date Type Department Care Team (Late st Contact Info) Description 03/28/2019 Telephone [facility] Oncology [address] [place] [address] Mimi Moreau [facility] PROVIDER & SCHEDULE UPDATE Social History Tobacco Use Types Packs/Day Years Used Date Smoking Tobacco: Never Smokeless Tobacco: Never Comments No Sex and Gender Information Value Date Recorded Sex Assigned at Not on file Legal Sex Female 8:09 PM RN [facility] Gender Identity Not on file Sexual Orientation Not on file documented as of this encounter Plan of Treatment Not on file documented as of this encounter Visit Diagnoses Not on filedocumented in this encounter Care Teams Economics Analyst Relationship Specialty Start Date End Date Jose Mace MD [address] [place] [address] PCP - General 02/01/18 Pao Dietrich NP [address] [place] [address] Nurse Practitioner Medical Oncology 05/19/20 documented as of this encounter
--- OUTSIDE RECORDS SUMMARY | 2025-01-21 10:27 | XMS_ITS | Encounter Summary ---
Author Organization [facility] Address [address] [place] [address] Phone Care Team Providers Care Chemistry Quality Control Analyst Name Role Phone Jose Mace MD Primary Care Provider Pao Dietrich CARE COORDINATION MANAGER Unavailable [phone] Reason for Visit * Reason Onset Date Comments SCHEDULE UPDATE 05/03/2019 Encounter Details Date Type Department Care Team (Late st Contact Info) Description 05/03/2019 Telephone [facility] Oncology [address] [place] [address] Mimi Moreau, [facility] SCHEDULE UPDATE Social History Tobacco Use Types Packs/Day Years Used Date Smoking Tobacco: Never Smokeless Tobacco: Never Comments No Sex and Gender Information Value Date Recorded Sex Assigned at Not on file Legal 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
--- OUTSIDE RECORDS SUMMARY | 2025-01-21 10:27 | XMS_ITS | Encounter Summary ---
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 Gender Identity Not on file Sexual Orientation Not on file Occupation Industry Job Start Date Job End Date Homemaker Not on file Not on file Not on file documented as of this encounter Plan of Treatment Not on file documented as of this encounter Procedures Procedure Name Priority Date/Time Associated Diagnosis Comments SCAN - RADIOLOGY/IMAGING 05/23/2019 documented in this encounter Results * SCAN - RADIOLOGY/IMAGING (05/23/2019) Anatomical Region Laterality Modality Other us Provider Scanning Final Result documented in this encounter Visit Diagnoses Not on filedocumented in this encounter Care Teams Displayer Relationship Specialty Start Date End Date Jose Mace MD [address] [place] [address] PCP - General 02/01/18 Pao Dietrich NP [address] [place] [address] Nurse Practitioner Medical Oncology 05/19/20 documented as of this encounter
--- OUTSIDE RECORDS SUMMARY | 2025-01-21 10:28 | XMS_ITS | Referral Summary ---
Author Organization [facility] Address [address] [address] Care Team Providers Care Podiatric Technician Name Role Phone Jose Mace MD Primary Care Provider [phone] Pao Dietrich PARALEGAL LEGAL SECRETARY Unavailable [phone] Allergies No known active allergies Medications psyllium seed, sugar, powder Active metFORMIN (GLUCOPHAGE) 1,000 mg tablet 1 tablet (1,000 mg total) 2 times daily 0 Active [id number] a-fish oil 300-1,000 mg capsule 2 capsules daily. Active pantoprazole DR (PROTONIX) 40 mg EC tablet 0 Active atorvastatin (LIPITOR) 40 mg tablet Take 1 tablet (40 mg total) by mouth daily Active gabapentin (NEURONTIN) 600 mg tablet Take 1 tablet (600 mg total) by mouth 3 (three) times a day Active candesartan (ATACAND) 32 mg tablet 1 Active Trulicity 0.75 mg/0.5 mL pen injector 1 Active empagliflozin (JARDIANCE ORAL) Jardiance Active traZODone (DESYREL) 100 mg tablet 1 Active cranberry 400 mg capsule cranberry 400 mg capsule Active chlorhexidine (PERIDEX) 0.12 % solution SWISH 1/2 OUNCE AFTER THOROUGH BRUSHING & FLOSSING IN THE AM AFTER BREAKFAST AND BEFORE BEDTIME 2 Active oxybutynin XL (DITROPAN-XL) 10 mg 24 hr tablet 2 Active venlafaxine XR (EFFEXOR-XR) 75 mg 24 hr capsule Take by mouth daily 2 Active hydroCHLOROthia zide (HYDRODIURIL) 12.5 mg tablet 3 Active famotidine (PEPCID) 40 mg tablet 4 Active Active Problems Problem Noted Date Diagnosed Date History of breast cancer 05/19/2020 Osteopenia of multiple sites 11/13/2019 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/2019 Postmenopausal 05/17/2019 At risk for osteoporosis 05/17/2019 Malignant neoplasm of upper- outer quadrant of unspecified female breast 04/06/2018 Mammogram abnormal 09/16/2010 Immunizations Immunization Administration Dates Next Due Influenza, Quadrivalent, Hig h Dose, Preservative Free, Intrr 08/19/2020 Influenza, Unspecified 10/14/2013 Pneumococcal, Unspecified 05/28/2012 ZOSTER LIVE 10/14/2013 Social History Tobacco Use Types Packs/Day Years Used Date Smoking Tobacco: Never Smokeless Tobacco: Never Tobacco Cessation:Counseling Given: Not Answered Alcohol Use Standard Drinks/Week Comments Never 0 (1 standard drink = 0.6 oz pur e alcohol) AUDIT-C Answer Date Recorded Frequency of Alcohol Consumption Never 05/21/2019 Average Number of Drinks Not on file 019 Frequency of Binge Drinking Not on file 04/28 Personal Safety Answer Date Recorded Getting School Help Needed Not on file 11/13 Comments No Sex and Gender Information Value Date Recorded Sex Assigned at Not on file 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 Gender Identity Not on file Sexual Orientation Not on file Occupation Industry Job Start Date Job End Date Homemaker Not on file Not on file Not on file Last Filed Vital Signs Vital Sign Reading Time Taken Comments Blood Pressure 134/69 09/20/2024 9:39 AM CDT Pulse 62 09/20/2024 9:39 AM CDT Temperature 36.4 C (97.6 F) 09/20/2024 9:39 AM CDT Respiratory Rate 20 09/20/2024 9:39 AM CDT Oxygen Saturation 97% 09/20/2024 9:39 AM CDT Inhaled Oxygen Concentration - - Weight 76 kg (167 lb 9.6 oz) 09/20/2024 9:39 AM CDT Height 160 cm (5' 3 ) 09/20/2024 9:39 AM CDT Body Mass Index 29.69 09/20/2024 9:39 AM CDT Plan of Treatment Not on file Procedures Procedure Name Priority Date/Time Associated Diagnosis Comments SCREENING MAMMOGRAM LEFT W JAYA UNILATERAL ONLY Schedule Routine, Read Routine (OP Routine) 06/25/2024 10:41 AM CDT Encounter for follow-up surveillance of breast cancer Encounter for screening mammogram for malignant neoplasm of breast from Last 3 Months or Most Recently Relevant to Health Maintenance Results * Screening Mammogram Left W Jaya Unilateral Only (06/25/2024 10:41 AM CDT) Anatomical Region Laterality Modality Breast Left Mammography Narrative 06/26/2024 11:17 AM CDT Mammogram Technique: Left Breast Digital Breast Tomosynthesis, Unilateral C-view 2D Screening mammogram. Views obtained: left craniocaudal and left mediolateral oblique. Computer Aided Detection was performed. Mammogram Findings: The present examination has been compared to prior imaging studies performed at [facility] on 05/25/2021, 06/07/2022 and 06/09/2023. There are scattered areas of fibroglandular density. There is no suspicious abnormality in the left breast. Patient status post contralateral mastectomy for personal history of breast cancer. Impression: There is no mammographic evidence of malignancy. Annual screening mammography is recommended. OVERALL FINAL ASSESSMENT: BI-RADS CATEGORY 1: Negative. Procedure Note Brook Jasso MD - 06/26/2024 Mammogram Technique: Left Breast Digital Breast Tomosynthesis, Unilateral C-view 2D Screening mammogram. Views obtained: left craniocaudal and left mediolateral oblique. Computer Aided Detection was performed. Mammogram Findings: The present examination has been compared to prior imaging studies performed at [facility] on 05/25/2021, 06/07/2022 and 06/09/2023. There are scattered areas of fibroglandular density. There is no suspicious abnormality in the left breast. Patient status post contralateral mastectomy for personal history ofbreast cancer. Impression: There is no mammographic evidence of malignancy. Annual screening mammography is recommended. OVERALL FINAL ASSESSMENT: BI-RADS CATEGORY 1: Negative. Salma Ardon NP IMG MAMMO PROCEDURES Fin al Result from Last 3 Months or Most Recently Relevant to Health Maintenance Insurance 2009 [place] [id number] MEDICARE Pivot MEDICARE [facility] MEDICARE MEDICARE FOR LIFE Care Teams Podiatric Technician Relationship Specialty Start Date End Date Jose Mace MD [address] [employer] [address] [place], [place] [id number] PCP - General 02/01/18 Pao Dietrich NP [address] [place] [address] Nurse Practitioner Medical Oncology 05/19/20
--- OUTSIDE RECORDS SUMMARY | 2025-01-21 10:28 | XMS_ITS | Clinical Summary ---
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/2019 Postmenopausal 05/17/2019 At risk for osteoporosis 05/17/2019 Malignant neoplasm of upper- outer quadrant of unspecified female breast 04/06/2018 Mammogram abnormal 09/16/2010 Immunizations Immunization Administration Dates Next Due Influenza, Quadrivalent, Hig h Dose, Preservative Free, Intrr 08/19/2020 Influenza, Unspecified 10/14/2013 Pneumococcal, Unspecified 05/28/2012 ZOSTER LIVE 10/14/2013 Surgical History Surgery Date Site/Laterality Comments TRIGGER FINGER RELEASE 11/27/2002 - 11/26/2003 Medical History Medical History Date Comments Hypertension Hypercholesterolemia H/O non-insulin dependent diabetes mellitus Obesity Right Breast cancer (CMS/HCC) 10/2010 Family History Medical History Relation Name Comments Heart attack Father Breast cancer Father's Sister with later bone mets respiratory failure Mother pelvic mass Mother's Sister Relation Name Status Comments Brother Alive Daughter Alive Father Father's Sister Maternal Grandfather Maternal Grandmother Mother Mother's Sister Paternal Grandfather Paternal Grandmother Son Alive Social History Tobacco Use Types Packs/Day Years [...] on file 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 2 para 2, 1st term age 21. Natural menopause early 50s. On hormone replacement therapy for about 2 years. Oral contraceptives for about 16 years. Last Filed Vital Signs Vital Sign Reading [...] 09/20/2024 9:39 AM CDT Plan of Treatment Health Maintenance Due Date Last Done Comments Colon Cancer Screening-Colonoscopy 1952 Depression Screening 1952 Fall Risk Assessment 1950 Hepatitis C Screening 1950 Osteoporosis Screening-Bone Density Scan 1952 DTaP/Tdap/Td Vaccine (1 - Tdap) 1963 Hepatitis B Screening 1970 Pneumococcal vaccine 65+ (1 of 1 - PCV) 2002 05/28/2012 Zoster Vaccine (2 of 3) 12/09/2013 10/14/2013 Well Visit 65+ 2017 Influenza Vaccine (#1) 2024 08/19/2020, 2012 Breast Cancer Screening-Mammogram 06/25/2025 06/25/2024, 06/09/2023, 06/07/2022, Additional history exists Procedures Procedure Name Priority Date/Time Associated Diagnosis [...] compared to prior imaging studies performed at [facility] on 05/25/2021, 06/07/2022 and 06/09/2023. There are [...] compared to prior imaging studies performed at [facility] on 05/25/2021, 06/07/2022 and 06/09/2023. There are [...] Most Recently Relevant to Health Maintenance Insurance MEDICARE FOR LIFE [address] [place] [id number] MEDICARE FOR LIFE [facility] [place] [address] [address] [place] [id number] MEDICARE FOR LIFE Care Teams Registry Rn Relationship Specialty Start Date End Date Jose Mace MD [address] [place] [address] PCP - General 02/01/18 Pao Dietrich NP [address] [place] [address] Nurse Practitioner Medical Oncology 05/19/20
--- OUTSIDE RECORDS SUMMARY | 2025-01-21 10:28 | XMS_ITS | Data Portability ---
Author Organization [facility] [place] Address [address] [place] [address] Care Team Providers Care Air Pollution Control Engineer Name Role Phone CRISELDAJamalMARTÍNOR Primary Care Provider [phone] Assessment Encounter Date Assessment Date Assessment LastModified by Organization Details LastModified Time 11/16/2020 11/16/2020 healthy female exam/menopaus e not sexually active pap done, discussed new guidelines, if normal, may stop mammogram due in April, ordered per breast surgeon colonoscopy- will do cologard for this year dexa repeat next year, continue fosamax Encouraged weight bearing exercise and 1500mg daily of Calcium with Vitamin D FU 1 year or prn [email or web address] Not available 11/16/2020 10:44:44 07/29/2022 07/29/2022 menopause atrophy- asymptomatic, declines tx pap- none further mammogram UTD colonoscopy- cologuard due 2023 dexa- will get report. repeat 5y if normal, 2-3 if osteopenia Encouraged weight bearing exercise and 1500mg daily of Calcium with Vitamin D FU 1 year or prn [email or web address] Not available 07/29/2022 11:14:43 Plan of Treatment Reminders Order Date Submit Date Provider Last Modified By Organization Details Last Modified Time Details Appointments None record ed. Lab None record ed. Referral None record ed. Procedures None record ed. Surgeries None record ed. Imaging None record ed. Medication Orders None record ed. Patient TargetsNo targets recorded. Patient InstructionsNo instructions recorded. Reason for Referral None Reported. Results Created Date Observation Date Name Description Value Unit Range Abnormal Flag Note LastModifiedBy Organization Detail LastModifiedTime 11/16/20 20 11/18/2020 pap, LB Pap test thin prep Negati ve for Intrae pithel ial Lesion or Malign bina normal ACCES THAD #: [id number] Sourc e: Cervi scott/E ndoce rvica l LMP: 2019 Date Taken : 11/16 Speci men Type: ThinP rep Vial Date Repor víctor: 11/18 Clini scott Data: Cytot ech: Bebo KelleyKristi Marrufo cki CT( CP) Date Repor víctor: 11/17 Speci men Adequ acy: Satis facto ry for evalu ation Endoc ervic al/tr ansfo rmati on zone compo nent prese nt Gener al Categ oriza tion: NEGAT DEMOND FOR INTRA EPITH ELIAL LESIO N OR MALGASTON VILLAFANA Inter preta tion/ Resul t: Atrop hy This speci men has been marc zed by the ThinP rep Imagi ng Syste m, an inter activ e compu ter syste m which danica ts the lab in the scree lorraine of ThinP rep Pap Test slide s. Follo wing imagi ng, the slide was revie wed by a Cytot echno logis t and/o r Patho logis t. D N A A S S A Y S R E P O R T TEST NAME RESUL TS ----- ---- ----- -- HPV High Risk Scree n (TMA) ThinP rep Vial The human papil lomav irus (HPV) High Risk Scree n is an FDA-a pprov ed in-vi tro ampli fied nucle ic acid test for the quali tativ e detec tion of E6/E7 viral mRNA. Resul ts yg huntley be corre lated with patie nt prese ntati on, histo ry, cervi scott cytol ogy and other clini scott and labor atory findi ngs. See https ://Ubalo/s ites/ defau lt/fi les/2 018-0 3/AW- 23000 _002_ 01.pd f for furth er infor matio n. Test perfo rmed by [facility], d/b/a Jason randle, [address], [place] [address] , Agusto Pineda ra, DO, Labor [facility] tor. HPV High Risk *HPV NOT DETEC VÍCTOR (TYPE S 16, 18, 31, 33, 35, 39, 45, 51, 52, 56, 58, 59, 66, 68) *HPV: The human papil lomav irus (HPV) High Risk Ronald cruz is an FDA-a pprov ed in-vi tro ampli fied nucle ic acid test for the quali tativ e detec tion of E6/E7 viral mRNA. Resul ts shoul d be corre lated with patie nt prese ntati on, histo ry, cervi scott cytol ogy and other clini scott and labor atory findi ngs. See https ://Ubalo/s ites/ defjohn lt/fi les/2 018-0 3/AW- 07429 _002_ 01.pd f for [facility] jordan infor damaris n. Test perfo rmed by [facility], d/b/a [employer], [address], [place] [address] , Agusto Pineda ra, DO, Labor [facility]. End of t Techn ical servi cody provi ded by [employer], d/b/a [employer], [address] [place] [address] Dewey Arcos MD, Labor [employer] [facility] tor. Case revie wed and diagn osis rende red at [employer], d/b/a [employer], [address] [place] [address] Dewey Arcos MD, Labor [employer] [facility]. CONFI DENTI AL Not Available [facility] ([facility]) [address], [place], [address], 11/18/2020 14:21:34 11/16/20 20 11/18/2020 HPV DNA, high- risk HPV high risk NOT DETECT ED normal Not Available [facility] ([facility]) [address] [facility] [address], [place], [address], 11/18/2020 14:21:36 Result Notes None recorded. Problems Name Problem SNOMED Code Status Onset Date Resolution Date Notes Provider Name and Address Organization Details Recorded Time History of malignant neoplasm of breast 175617229 Active 2009 Jacinta Juares MD [address], [place], [address], [facility] 0 10:14:24 Hypertensive disorder 04782378 Active 2019 Jacinta Juares MD [address], [place], [address], [facility] 0 10:14:30 Type 2 diabetes mellitus 63851119 Active 2019 Jacinta Juares MD [address], [place], [address], [facility] 0 10:14:38 History of osteoporosis 399195135 Active 2021 Jacinta Juares MD [address], [place], [address], [facility] 2 11:10:25 Problem Notes None recorded. Procedures Surgical History Date Name Laterality Status Provider Name and Address Organization Details Recorded Time 06/07/20 22 Date of Last Mammogram completed [facility] 07/29/2022 10:32:21 11/27/19 21 Date of Last Colonoscopy completed [facility] 07/29/2022 10:32:30 11/27/19 21 Most Recent Bone Density completed [facility] 07/29/2022 10:32:40 11/16/20 20 Date of Last Pap Smear completed [facility] 07/29/2022 09:14:28 11/27/19 12 Nipple/areola reconstruction completed [facility] 11/13/2020 17:03:56 11/27/19 10 excision of bilateral breasts completed [facility] 11/13/2020 17:03:44 11/27/18 80 ligation of bilateral fallopian tubes completed [facility] 11/13/2020 17:03:23 Imaging Results None recorded. Procedure Notes None recorded. Medical Equipment None Reported. Allergies No known drug allergies Medications Name Sig Start Date Stop Date Status Note LastModified by Organization Details LastModified Time losartan 50 mg tablet take 1 tablet by oral route every day 07/29 completed Prescrib ed Elsewher e: Yes Loca tion: [facility] [address] [facility] M odify By: rosemarie dominguez DateTime : 09/28/20 11 09:00:00 AM Not Available Not Available Not Available amoxicill in 500 mg capsule TAKE 1 CAPSULE BY MOUTH THREE TIMES A DAY UNTIL GONE 07/29 completed Not Available Not Available Not Available atorvasta tin 40 mg tablet 07/29 completed Not Available Not Available Not Available anastrozo le 1 mg tablet take 1 tablet (1MG) by oral route every day 11/16 completed Not Available Not Available Not Available venlafaxi ne ER 75 mg capsule,e xtended release 24 hr TAKE 1 CAPSULE BY MOUTH EVERY DAY active Not Available Not Available No t Available gabapenti n 600 mg tablet active Not Available Not Available Not Available atorvasta tin 20 mg tablet 11/16 completed Not Available Not Available Not Available trazodone 50 mg tablet 11/16 completed Not Available Not Available Not Available oxybutyni n chloride ER 10 mg tablet,ex tended release 24 hr 07/29 completed Not Available Not Available Not Available hydrocodo ne 5 mg-acetam inophen 325 mg tablet 07/29 completed Not Available Not Available Not Available famotidin e 40 mg tablet 11/16 completed Not Available Not Available Not Available tramadol 50 mg tablet TAKE 1 TABLET BY MOUTH EVERY DAY NEEDED 07/29 completed Not Available Not Available Not Available Macrobid 100 mg capsule take 1 capsule (100MG) by oral route every 12 hours with food 10/18 completed Prescrib ed Elsewher e: No Locat ion: [facility] odify By: naomi Cortezt er DateTime : 10/09/20 12 09:53:14 AM Not Available Not Available Not Available alendrona te 35 mg tablet 07/29 completed Not Available Not Available Not Available trazodone 100 mg tablet 07/29 completed Not Available Not Available Not Available pantopraz ole 40 mg tablet,de layed release active Not Available Not Available Not Available metformin 1,000 mg tablet active Not Available Not Available Not Available Cipro 500 mg tablet take 1 tablet by oral route every 12 hours 07/29 completed Prescrib ed Elsewher e: No Locat ion: [facility] odify By: no lopezunter DateTime : 10/27/20 15 10:03:00 AM Not Available Not Available Not Available candesart an 32 mg tablet 07/29 completed Not Available Not Available Not Available cranberry fruit 400 mg capsule 07/29 completed Prescrib ed Elsewher e: Yes Loca tion: [facility] odify By: rj Thompson nter DateTime : 09/25/20 11 04:26:32 PM Not Available Not Available Not Available Cozaar 25 mg tablet take 1 tablet by oral route every day 10/08 completed Prescrib ed Elsewher e: Yes Loca tion: [facility] odify By: jayna dominguez DateTime : 09/25/20 11 04:26:32 PM Not Available Not Available Not Available nystatin 100,000 unit/gram topical powder apply by topical route 2 times every day to the affected area(s) 07/29 completed Prescrib ed Elsewher e: No Locat ion: [facility] odify By: rj Thompson nter DateTime : 12/02/19 17 08:30:00 AM Not Available Not Available Not Available Lipitor 10 mg tablet take 1 tablet by oral route every day active Prescrib ed Elsewher e: Yes Loca tion: [facility] odify By: jayna dominguez DateTime : 10/02/20 12 08:15:00 AM Not Available Not Available Not Available sertralin e 50 mg tablet TAKE 1 TABLET BY MOUTH EVERY DAY 07/29 completed Not Available Not Available Not Available olmesarta n 20 mg tablet 11/16 completed Not Available Not Available Not Available Riomet 500 mg/5 mL oral solution take 10 millilit er by oral route 2 times every day with meals 07/29 completed Prescrib ed Elsewher e: Yes Loca tion: [facility] odify By: rj tz Encou nter DateTime : 09/25/20 11 04:26:32 PM Not Available Not Available Not Available chlorhexi dine gluconate 0.12 % mouthwash SWISH 1/2 OUNCE AFTER THOROUGH BRUSHING & FLOSSING IN THE AM AFTER BREAKFAS T AND BEFORE BEDTIME 07/29 completed Not Available Not Available Not Available Lipitor 07/29 completed Not Available Not Available Not Available Fish Oil active Not Available Not Avai lable Not Available Arimidex 07/29 completed Not Available Not Available Not Available fiber active Not Available Not Availa ble Not Available Vitamin D3 active Not Available Not Available Not Available Atacand active Not Available Not Avail able Not Available Ditropan XL active Not Available Not Available Not Available Protonix active Not Available Not Avai lable Not Available Benicar 07/29 completed Not Available Not Available Not Available Simcor 1,000 mg-20 mg tablet,ex tended release take 1 tablet by oral route every day at bedtime after a low-fat snack 10/02 completed Prescrib ed Elsewher e: Yes Loca tion: [facility] odify By: jayna dominguez DateTime : 09/28/20 11 09:00:00 AM Not Available Not Available Not Available Jardiance 10 mg tablet take 1 tablet by oral route every day in the morning active Prescrib ed Elsewher e: Yes Loca tion: [facility] odify By: ankur lopezunter DateTime : 12/18/19 18 09:30:00 AM Not Available Not Available Not Available Jardiance 07/29 completed Not Available Not Available Not Available Trulicity 0.75 mg/0.5 mL subcutane ous pen injector active Not Available Not Available Not Available Fluzone High-Dose Quad (PF) 240 mcg/0.7 mL IM syringe ADM 0.7ML IM UTD 11/16 completed Not Available Not Available Not Available Vitals Date Recorded Body height Body mass index (BMI) Body weight Systolic blood pressure Diastolic blood pressure Systolic blood pressure Diastolic blood pressure Provider Name and Address Organization Details Last Updated DateTime 2 157.48 cm 31.3 kg/m2 33642.3 g 159 mm[Hg] 83 mm[Hg] 150 mm[Hg] 78 mm[Hg] [facility] 2 10:32:04 Date Recorded Body height Body mass index (BMI) Body weight Systolic blood pressure Diastolic blood pressure Provider Name and Address Organization Details Last Updated DateTime 11/16/2020 157.48 cm 35.8 kg/m2 33744.1 g 174 mm[Hg] 93 mm[Hg] [facility] 0 10:08:19 Social History None recorded. Functional Status None recorded. Mental Status None recorded. Family History Relationship Description Onset Age of this Age Resolved Age Notes LastModified by Organization Details LastModified Time Paternal Grandmother Diabetes mellitus [email or web address] Not available 2019 17:02:12 Father Disorder of coronary artery [email or web address] Not available 2019 17:02:36 Maternal Aunt Carcinoma of uterine cervix, invasive [email or web address] Not available 2019 17:02:55 Notes:Father: Coronary arter y disease Maternal aunt: Cervical cancer Paternal grandmother: Diabetes mellitus Medical History Condition Response Allergies (Food, seasonal, environmental ) N Other N Breast Cancer Y Drug/Latex Allergies/Reactions N Blood Transfusion N Dermatologic Disorders N Lung Disease N Defects or Inherited Disease N Breast Problem N Gestational Diabetes N Hematologic disorders N Anesthesia Complications N History of STI N Deep Vein Thrombosis N Polycystic ovary syndrome N Anxiety Disorder N Autoimmune disease N Arthritis N Infertility N Polyps N Acid Reflux (GERD) N History of abnormal pap N Cancer N Stroke N Varicosities N Neurologic/Epilepsy N Endometriosis N High Cholesterol N Headaches N Fibromyalgia N Kidney Disease N Heart Problems N Kidney or Bladder Problems N Thyroid Problems N GI Problems N Eating Disorder N Anemia N Art (IVF or FET) N Psychiatric Illness N Ovarian Cancer N Diabetes Y Pulmonary (TB, Asthma) N Hepatitis/Liver Disease N Eczema N Urinary Tract Infection N Abuse/Domestic Violence N Asthma N Trauma/Violence N Depression/ depression N Heart Disease N Pre-Eclampsia N Hypertension Y Osteoporosis N Thrombophilias N Gynecological History Statement/Question Response Date of Last Pap Smear 11/16/2020 Current Control Method Tubal Ligat ion Date of Last Mammogram 06/07/2022 Date of Last Colonoscopy 11/27/2020 Most Recent Bone Density 11/27/2020 Obstetrics History GPAL:G 2 P 2 0 0 2 Type Value Full Term 2 Living 2 Total 2 Past Encounters Encounter ID Performer Location Encounter Start Date Encounter Closed Date Diagnosis/Indication Diagnosis SNOMED-CT Code Diagnosis ICD10 Code Diagnosis Note [id number] Jacinta Juares MD [place] [address] [address] 11/16/2020 09:55:37 11/16/2020 10:47:54 Gynecologic examination 71989524 Z01.419 History of malignant neoplasm of breast 907331002 Z85.3 [id number] Jacinta Juares MD [place] [address] [address] 07/29/2022 10:20:55 07/29/2022 12:19:49 History of osteoporosis 052316822 Z87.39 History of malignant neoplasm of breast 795482492 Z85.3 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 Health Concerns Section Related Observation LastModified by Organization Detai ls LastModified Time None Recorded Concern Status LastModified by Organization Details LastModified Time None Recorded Advance Directives Directive None Recorded Payers Encounter Date Sequence Insurance Name Policy Number Policy Russell Covered Member ID Russell Member ID Guarantor Name 11/16/2020 1 [place] Aarti H Diaz [id number] 5 Aarti Diaz 07/29/2022 1 [place] Aarti H Diaz [id number] 5 Aarti Diaz Notes Date Note Type Note Provider Name and Address Organization Details Recorded Time 11/16/2020 text/html Patient is a 70yo who presents for an annual exam. History breast cancer with mastectomy R in 2009. No bleeding. NO concerns. last pap-11/2017 mammo-04/2020 ordered by breast surgeon colonoscopy-10 years. PCP ordered cologard, to do soon dexa-1.5 years, osteoporosis, on fosamax menopause-yes sexually active-no seatbelts-yes exercise-yes, some depression-denie s domestic violence-denies tobacco-no concerns-none Jacinta Juares MD [address], [place], [address], [facility] 11/23/2020 09:10:50 07/29/2022 text/html Patient is a 71yo who presents for her yearly breast and pelvic exam and follow up osteoporosis. She states she had a normal DEXA last year and was taken off alendronate, but she doesn't know if it was osteopenia or truly normal. She only sees her breast cancer doctor yearly. SHe was recently on abx and treated herself with monistat for a yeast infection and the sx resolved. diabetes has been ok. last pap-2019 mammo-05/2022 left, right mastectomy colonoscopy-colo guard 2020 dexa-2020, unsure of exact results menopause-y, no bleeding sexually active-n seatbelts-y exercise-y depression-yes, started on effexor, doing well domestic violence-n tobacco-n concerns- Jacinta Juares MD [address], [place], [address], [facility] 07/29/2022 11:15:23 OBGyn Episode Ob Episode Information Episode Created Date Number of Fetuses Patient Bloodtype Patient rh Status Prepregnancy Weight lbs Domestic Partner Domestic Partner Phone Father Name It Service Continuity Supervisor Status 11/13/20 20 1 CLOSED Fetus Data First Name Last Name Admitted to NICU Weight (g) Sex Living Outcome Pediatric Complications Fetus ID Race Codes Race Delivery Type [id number] Vaginal Delivery Kirk Calculation Initial Kirk Date Initial Exam Date Initial Exam Provider Initial Ultrasound Date Last Menstrual Period Date Ultra Sound Weeks Gestation 0 Eighteen To Twenty Week Kirk Update Ultra Sound Date Fundal Height At Umbil Quickening Date Ultra Sound Latest Weeks Gestation Final Kirk Confirmed By Final Kirk Confirmed Date Final Kirk Date Ultra Sound Latest Days Gestation 0 0 Menstrual History Last Menstrual Date Menses Monthly On Bcp Conception Prior Menses Frequency Hcg Plus Date Menarche Onset Age Delivery Information Delivery Date Delivery Type Labor Anesthesia Weeks Gestation Incision Type Labor Labor Length Hrs Delivered By Post Complications Tubal Sterilization Discharge Date Comments 0 Discharge Information Feeding Method Contraceptive Method Maternal HG B and HCT Levels Ob Episode Information Episode Created Date Number of Fetuses Patient Bloodtype Patient rh Status Prepregnancy Weight lbs Domestic Partner Domestic Partner Phone Father Name It Service Continuity Supervisor Status 11/13/20 20 1 CLOSED Fetus Data First Name Last Name Admitted to NICU Weight (g) Sex Living Outcome Pediatric Complications Fetus ID Race Codes Race Delivery Type [id number] Vaginal Delivery Kirk Calculation Initial Kirk Date Initial Exam Date Initial Exam Provider Initial Ultrasound Date Last Menstrual Period Date Ultra Sound Weeks Gestation 0 Eighteen To Twenty Week Kirk Update Ultra Sound Date Fundal Height At Umbil Quickening Date Ultra Sound Latest Weeks Gestation Final Kirk Confirmed By Final Kirk Confirmed Date Final Kirk Date Ultra Sound Latest Days Gestation 0 0 Menstrual History Last Menstrual Date Menses Monthly On Bcp Conception Prior Menses Frequency Hcg Plus Date Menarche Onset Age Delivery Information Delivery Date Delivery Type Labor Anesthesia Weeks Gestation Incision Type Labor Labor Length Hrs Delivered By Post Complications Tubal Sterilization Discharge Date Comments 1 Discharge Information Feeding Method Contraceptive Method Maternal HG B and HCT Levels
[2025-01-21 10:33] LABS: Add Urine Microscopic? YES; Appearance Urine Clear (Clear); Bacteria Urine None Seen /hpf; Bilirubin Urine Negative (Negative); Blood Urine Negative (Negative); Color Urine Yellow (Yellow); Glucose Urine UA Negative (Negative); Ketones Urine Negative (Negative); Leukocyte Esterase Ur 1+ LEU/UL (Negative); Need Manual Microscopic Reviewed; Nitrate Urine Negative (Negative); Non Pathogenic Casts 0-2; Protein Urine Negative (Negative); RBC Urine 0-2 /hpf (0-2); Specific Grav Ur 1.012 (1.001-1.035); Squamous Epithelial Cell Urine None Seen /hpf (Few); Urobilinogen Urine 0.2 mg/dL (<2.0); WBC Urine 0-5 /hpf (0-3); pH Urine 6.5 (5.0-9.0)
[2025-01-21 10:35] LABS: Alanine Aminotransferase 15 U/L (6-35); Albumin Level 4.3 g/dL (3.5-5.1); Alkaline Phosphatase 65 U/L (38-126); Anion Gap 12 mmol/L (4-12); Aspartate Amino Transferase 23 U/L (14-36); Bilirubin,Total 0.5 mg/dL (0.2-1.3); Blood Urea Nitrogen 21 mg/dL (7-17); Calcium 9.7 mg/dL (8.4-10.2); Carbon Dioxide 30 mmol/L (22-30); Chloride 97 mmol/L (98-107); Cholesterol 149 mg/dL (0-200); Estimated Glomerular Filt Rate 48; Glucose 113 mg/dL (65-110); HDL Direct 44 mg/dL; Potassium 4.7 mmol/L (3.4-5.0); Sodium 139 mmol/L (137-145); Triglycerides 192 mg/dL (<150)
[2025-01-21 10:46] LABS: LDL Cholesterol Direct 57 mg/dL
[2025-01-21 11:02] LABS: Thyroid Stimulating Hormone 0.867 uIU/mL (0.465-4.680)
[2025-01-21 11:16] LABS: Free T4 Free Thyroxine 1.25 ng/dL (0.78-2.19)
[2025-01-21 13:37] LABS: Hemoglobin A1C 6.2 % (<5.7)
[2025-01-21 13:45] LABS: Creatinine Urine 61.3 mg/dL
[2025-01-21 13:50] LABS: MALB Creatinine Ratio 11.1 mg/g (0-30); Microalbumin Urine Random 6.8 mg/L (0-16.7)
[2025-01-21 14:41] LABS: Iron 66 ug/dL (37-170)
[2025-01-21 14:52] LABS: Percent Iron Saturation 13 % (20-50)
[2025-01-21 15:19] LABS: Ferritin 6.27 ng/mL (11.1-264)
== END 2025-01-21 09:27 | disposition home or self-care (01) ==
PROVIDERS: PCP Internal Medicine; Visit Provider Internal Medicine
DX: E78.5 Hyperlipidemia, unspecified (principal); E11.9 Type 2 diabetes mellitus without complications; D64.9 Anemia, unspecified; I10 Essential (primary) hypertension; Z79.899 Other long term (current) drug therapy; Z13.29 Encounter for screening for other suspected endocrine disorder
CPT/HCPCS: 36415; 80053; 80061; 81001; 82043; 82728; 83036; 83540; 83550; 84439; 84443; 85025; 87086

== ENCOUNTER 2025-04-23 16:33 | Outpatient (CLI) | payer MEDICARE, OTHER, SELFPAY ==
--- NOTE | ~2025-04-23 | XR_ITS ---
XR hip LT 2V w AP pelvis 04/23/2025 17:02 Indication: Low back pain Procedure: AP pelvis and 2 views left hip Comparison: No prior studies for comparison. Findings: Pelvic rings intact. Mild osteoarthritis of the hips. Sacral foramen are symmetric. There i s mild osteitis pubis. No fracture or traumatic malalignment. No soft tissue abnormality. No foreign bodies. There is lower lumbar spondylosis partially visualized. Impression: 1: Mild bilateral symmetric osteoarthritis of the hips. Reviewed, dictated and finalized at location A. Impression: 1: Mild bilateral symmetric osteoarthritis of the hips.
--- NOTE | ~2025-04-23 | XR_ITS ---
Lumbosacral Spine: AP, oblique, and lateral views Clinical History: Pain Findings: The normal lordotic curve is maintained. The vertebral bodies and posterior elements are i ntact. There is severe facet arthropathy from L4 through S1. There is mild to moderate facet arthropa thy at the upper lumbar spine. There is moderate degenerative disc narrowing at L4-L5 and L5-S1. The sacroiliac joints are normally outlined. Impression: Advanced degenerative spondylosis of the lower lumbar spine, as detailed above. Reviewed, dictated and finalized at location M. Impression: Advanced degenerative spondylosis of the lower lumbar spine, as detailed above.
--- OUTSIDE RECORDS SUMMARY | 2025-04-23 16:37 | XMS_ITS | Encounter Summary ---
Author Organization [facility] Address [address] [place] [address] Phone Care Team Providers Care Pump Installation And Servicer Name Role Phone Jose Mace MD Primary Care Provider [phone] Pao Dietrich BOILER PLANT WORKER Unavailable [phone] Reason for Visit * Reason Onset Date Comments SCHEDULE UPDATE 05/03/2019 Encounter Details Date Type Department Care Team (Late st Contact Info) Description 05/03/2019 Telephone [facility] On[facility] [address] [place] [address] Mimi Moreau, [facility] SCHEDULE UPDATE Social History Tobacco Use Types Packs/Day Years Used Date Smoking Tobacco: Never Smokeless Tobacco: Never Comments No Sex and Gender Information Value Date Recorded Sex Assigned at Not on file Legal Sex Female 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
--- OUTSIDE RECORDS SUMMARY | 2025-04-23 16:37 | XMS_ITS | Clinical Summary ---
Author Organization [facility] Address [address] [address] Care Team Providers Care Supervisor Packing Name Role Phone Jose Mace MD Primary Care Provider [phone] Pao Dietrich CHAIRMAN & CO FOUNDER Unavailable [phone] Allergies No known active allergies Medications psyllium seed, sugar, powder Active metFORMIN (GLUCOPHAGE) 1,000 mg tablet 1 tablet (1,000 mg total) 2 times daily 0 Active ocbkc-7t-nel-ep a-fish oil 300-1,000 mg capsule 2 capsules [...] cancer 05/19/2020 Osteopenia of multiple sites 11/13/2019 nursing home (current) use of aromatase inhibitors 05/17/2019 Postmenopausal 05/17/2019 At risk for osteoporosis 05/17/2019 Malignant neoplasm of upper- outer quadrant of unspecified female breast 04/06/2018 Mammogram abnormal 09/16/2010 Encounters Date Type Department Care Team Description 04/07/2025 Telephone [facility] Surgery [facility] Floor 8 [place] [address] Julee Galdamez CMA from Last 3 Months Immunizations Immunization Administration Dates Next Due Influenza, [...] Getting School Help Needed Not on file 12/18 /2023 Comments No Sex and Gender Information Value Date Recorded Sex Assigned at Not on file Legal Sex Female 8:09 PM MAINTAINER CENTRAL OFFICE Gender Identity Not on file Sexual Orientation Not on file Occupation Industry Job Start Date Job End Date Homemaker Not on file Not on file Not on file Obstetrics History Comments Director Clinical Operations history: Menarche age 15 . 2 para [...] 9:39 AM CDT Height 160 cm (5' 3) 09/20/2024 9:39 AM CDT Body Mass Index [...] 3) 12/09/2013 10/14/2013 Well Visit 65+ 2017 Breast Cancer Screening-Mammogram 06/25/2025 06/25/2024, 06/09/2023, 06/07/2022, Additional history exists Influenza Vaccine (Season Ended) 2025 08/19/20 20, 10/14/2013 Procedures Procedure Name Priority Date/Time Associated Diagnosis [...] compared to prior imaging studies performed at [facility] on 05/25/2021, 06/07/2022 and 06/09/2023. There are [...] compared to prior imaging studies performed at [facility] on 05/25/2021, 06/07/2022 and 06/09/2023. There are scattered areas of fibroglandular density. There is no suspicious abnormality in the left breast. Patient status post contralateral mastectomy for personal history ofbreast cancer. Impression: There is no mammographic evidence of malignancy. Annual screening mammography is recommended. OVERALL FINAL ASSESSMENT: BI-RADS CATEGORY 1: Negative. Salma Ardon NP [facility] MAMMO PROCEDURES Fin al Result from Last 3 Months or Most Recently Relevant to Health Maintenance Insurance [id number] MEDICARE FOR LIFE 2009 [place] [address] MEDICARE FOR LIFE [facility] MEDICARE MEDICARE [facility] Care Teams Supervisor Packing Relationship Specialty Start Date End Date Jose Mace MD [address] [place] [address] PCP - General 02/01/18 Pao Dietrich NP [address] [place] [address] Nurse Practitioner Medical Oncology 05/19/20
--- OUTSIDE RECORDS SUMMARY | 2025-04-23 16:37 | XMS_ITS | Encounter Summary ---
Author Organization [facility] Address [address] [place] [address] Phone Care Team Providers Care Bookmobile Librarian Name Role Phone Jose Mace MD Primary Care Provider [phone] Pao Dietrich MOSAIC WORKER Unavailable Encounter Details Date Type Department Care Team [...] on file Legal Sex Female 8:09 PM PHOTOGRAPHY EDITOR Gender Identity Not on file Sexual Orientation [...] on filedocumented in this encounter Care Teams Bookmobile Librarian Relationship Specialty Start Date End Date Jose Mace MD [address] [place] [address] PCP - General 02/01/18 Pao Dietrich NP [address] [place] [address] Nurse Practitioner Medical Oncology 05/19/20 documented as of this encounter
--- OUTSIDE RECORDS SUMMARY | 2025-04-23 16:37 | XMS_ITS | Referral Summary ---
Author Organization [facility] Address [address] [facility] [place] [address] Care Team Providers Care Sample Distributor Name Role Phone Jose Mace MD Primary Care Provider [phone] Pao Dietrich NP Unavailable [phone] Encounters Date Type Department Care Team Description 04/07/2025 Telephone [facility] Surgery [facility] Floor 8 [place] [address] Julee Galdamez CMA from Last 3 Months Allergies No known active allergies Medications psyllium seed, sugar, powder Active metFORMIN (GLUCOPHAGE) 1,000 mg tablet 1 tablet (1,000 mg total) 2 times daily 0 Active bnwrv-3g-gov-ep a-fish oil 300-1,000 mg capsule 2 capsules [...] cancer 05/19/2020 Osteopenia of multiple sites 11/13/2019 equipment operator intermodal yard (current) use of aromatase inhibitors 05/17/2019 Postmenopausal [...] on file Legal 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 There [...] compared to prior imaging studies performed at [facility] on 05/25/2021, 06/07/2022 and 06/09/2023. There [...] Recently Relevant to Health Maintenance Insurance 2009 [place] [id number] MEDICARE [employer] MEDICARE [facility] MEDICARE 2009 [place] [address] MEDICARE [facility] FOR LIFE Care Teams Sample Distributor Relationship Specialty Start Date End Date Jose Mace MD [address] [place] [address] PCP - General 02/01/18 Pao Dietrich NP [address] [place] [address] Nurse Practitioner Medical Oncology 05/19/20
--- OUTSIDE RECORDS SUMMARY | 2025-04-23 16:37 | XMS_ITS | Encounter Summary ---
Author Organization [facility] Address [address] [place] [address] Phone Care Team Providers Care Meals On Wheels Driver Name Role Phone Jose Mace MD Primary Care Provider [phone] Pao Dietrich BANQUET CHEF Unavailable [phone] Encounter Details Date Type Department Care Team (Late st Contact Info) Description 05/27/2019 Telephone [facility] Oncology [address] [facility] [address] [place] [address] Eloise White Social History Tobacco [...] on file 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 Gender Identity Not on file Sexual Orientation Not on file Occupation Industry Job Start Date Job End Date Homemaker Not on file Not on file Not on file documented as of this encounter Plan of Treatment Not on file documented as of this encounter Visit Diagnoses Not on filedocumented in this encounter Care Teams Meals On Wheels Driver Relationship Specialty Start Date End Date Jose Mace MD [address] [facility] [address] [place] [id number] PCP - General 02/01/18 Pao Dietrich NP [address] [facility] [address] [place] [place] [address] [place] [address] Nurse Practitioner Medical Oncology 05/19/20 documented as of this encounter
--- OUTSIDE RECORDS SUMMARY | 2025-04-23 16:37 | XMS_ITS | Encounter Summary ---
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
--- OUTSIDE RECORDS SUMMARY | 2025-04-23 16:37 | XMS_ITS | Encounter Summary ---
Author Organization [facility] Address [address] [place] [address] Phone Care Team Providers Care Steward/Stewardess Lounge Name Role Phone Jose Mace MD Primary Care Provider [phone] Pao Dietrich BREAD OVEN OPERATOR Unavailable [phone] Reason for Visit * Reason Onset Date Comments PROVIDER & SCHEDULE UPDATE 03/28/2019 Encounter Details Date Type Department Care Team (Late st Contact Info) Description 03/28/2019 Telephone [facility] Oncology [address] [facility] [address] [place] [address] Mimi Moreau [facility] PROVIDER & SCHEDULE UPDATE Social History Tobacco Use Types Packs/Day Years Used Date Smoking Tobacco: Never Smokeless Tobacco: Never Comments No Sex and Gender Information Value Date Recorded Sex Assigned at Not on file 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
== END 2025-04-23 16:34 | disposition home or self-care (01) ==
PROVIDERS: PCP Internal Medicine; Visit Provider Internal Medicine
DX: M47.816 Spondylosis without myelopathy or radiculopathy, lumbar region (principal); M16.0 Bilateral primary osteoarthritis of hip
CPT/HCPCS: 72110; 73502

== ENCOUNTER 2025-05-07 00:39 | Day surgery (SDC) | payer MEDICARE, OTHER, SELFPAY ==
[2025-04-25 13:12] VITALS: BMI 28.6
--- OUTSIDE RECORDS SUMMARY | 2025-05-07 00:44 | XMS_ITS | Data Portability ---
Author Organization [facility] [place] Address [address] [place] [address] Care Team Providers Care Publishing Editor Name Role Phone CRISELDAJamalMARTÍNOR Primary Care Provider Assessment Encounter Date Assessment Date Assessment LastModified [...] Vitamin D FU 1 year or prn [email or web address] Not available 11/16/2020 10:44:44 07/29/2022 07/29/2022 menopause atrophy- asymptomatic, declines tx pap- none further mammogram UTD colonoscopy- cologuard due 2023 dexa- will get report. repeat 5y if normal, 2-3 if osteopenia Encouraged weight bearing exercise and 1500mg daily of Calcium with Vitamin D FU 1 year or prn [email or web address] Not available 07/29/2022 11:14:43 Plan of Treatment [...] and labor atory findi ngs. See https ://[facility]/s ites/ defau lt/fi les/2 018-0 3/AW- 40950 _002_ 01.pd f for furth er infor matio n. Test perfo rmed by [facility], d/b/a Jason randle, [address], [place] [address] , Agusto Pineda ra, DO, Labor [employer] Dire[employer] tor. HPV High Risk *HPV NOT [...] and labor atory findi ngs. See https ://[facility]/s ites/ defjohn lt/fi les/2 018-0 3/AW- 90079 _002_ 01.pd f for [facility] jordan infor damaris n. Test perfo rmed by [facility], d/b/a [employer], [address], [place] [address] , Agusto Pineda ra, DO, Labor [employer] Dire tor. End of t Techn ical servi cody provi ded by [facility], d/b/a [employer], [address] [place] [address] Dewey Arcos MD, Labor [employer] Dire tor. Case revie wed and diagn osis rende red at [facility], d/b/a [employer], [address] [place] [address] Dewey Arcos MD, Labor [facility] tor. CONFI DENTI AL Not Available [facility] ([facility]) [address], [place], [address], 11/18/2020 14:21:34 11/16/20 20 11/18/2020 HPV DNA, high- risk HPV high risk NOT DETECT ED normal Not Available [facility] ([facility]) [address] [facility] [address], [place], [address], 11/18/2020 14:21:36 Result Notes None recorded. Problems Name Problem SNOMED Code Status Onset Date Resolution Date Notes Provider Name and Address Organization Details Recorded Time History of malignant neoplasm of breast 400423904 Active 2009 Jacinta Juares MD [address], [place], [address], [facility] 0 10:14:24 Hypertensive disorder 98191622 Active 2019 Jacinta Juares MD [address], [place], [address], [facility] 0 10:14:30 Type 2 diabetes mellitus 60138204 Active 2019 Jacinta Juares MD [address], [place], [address], [facility] 0 10:14:38 History of osteoporosis 967940408 Active 2021 Jacinta Juares MD [address], [place], [address], [facility] 2 11:10:25 Problem Notes None recorded. Procedures Surgical History Date Name Laterality Status Provider Name and Address Organization Details Recorded Time 06/07/20 22 Date of Last Mammogram completed [facility] 07/29/2022 10:32:21 11/27/19 21 Date of Last Colonoscopy completed [facility] 07/29/2022 10:32:30 11/27/19 21 Most Recent Bone Density completed [facility] 07/29/2022 10:32:40 11/16/20 20 Date of Last Pap Smear completed [facility] 07/29/2022 09:14:28 11/27/19 12 Nipple/areola reconstruction completed [facility] 11/13/2020 17:03:56 11/27/19 10 excision of bilateral breasts completed [facility] 11/13/2020 17:03:44 11/27/18 80 ligation of bilateral fallopian tubes completed [facility] 11/13/2020 17:03:23 Imaging Results None recorded. Procedure Notes None recorded. Medical Equipment None Reported. Allergies No known drug allergies Medications Name Sig Start Date Stop Date Status Note LastModified by Organization Details LastModified Time losartan 50 mg tablet take 1 tablet by oral route every day 07/29 completed Prescrib ed Elsewher e: Yes Loca tion: [facility] M odify By: rosemarie dominguez DateTime : [...] Elsewher e: No Locat ion: [facility] odify By: naomi Cortezt er DateTime : [...] Elsewher e: No Locat ion: [facility] odify By: no lopezunter DateTime : 10/27/20 15 10:03:00 AM Not Available Not Available Not Available candesart an 32 mg tablet 07/29 completed Not Available Not Available Not Available cranberry fruit 400 mg capsule 07/29 completed Prescrib ed Elsewher e: Yes Loca tion: [facility] odify By: rj Thompson nter DateTime : 09/25/20 11 04:26:32 PM Not Available Not Available Not Available Cozaar 25 mg tablet take 1 tablet by oral route every day 10/08 completed Prescrib ed Elsewher e: Yes Loca tion: [facility] odify By: jayna dominguez DateTime : 09/25/20 11 04:26:32 PM Not Available Not Available Not Available nystatin 100,000 unit/gram topical powder apply by topical route 2 times every day to the affected area(s) 07/29 completed Prescrib ed Elsewher e: No Locat ion: [facility] odify By: jr Thompson nter DateTime : 12/02/19 17 08:30:00 AM Not Available Not Available Not Available Lipitor 10 mg tablet take 1 tablet by oral route every day active Prescrib ed Elsewher e: Yes Loca tion: [facility] odify By: jayna dominguez DateTime : 10/02/20 [...] ed Elsewher e: Yes Loca tion: [facility] odify By: rj tz Encou nter [...] Elsewher e: Yes Loca tion: [facility] odify By: jayna dominguez DateTime : 09/28/20 11 09:00:00 AM Not Available Not Available Not Available Jardiance 10 mg tablet take 1 tablet by oral route every day in the morning active Prescrib ed Elsewher e: Yes Loca tion: [facility] odify By: ankur lopezunter DateTime : [...] Updated DateTime 2 157.48 cm 31.3 kg/m2 75747.3 g 159 mm[Hg] 83 mm[Hg] 150 mm[Hg] 78 mm[Hg] [facility] 2 10:32:04 Date Recorded Body height Body mass index (BMI) Body weight Systolic blood pressure Diastolic blood pressure Provider Name and Address Organization Details Last Updated DateTime 11/16/2020 157.48 cm 35.8 kg/m2 45453.1 g 174 mm[Hg] 93 mm[Hg] [facility] 0 10:08:19 Social History None recorded. [...] (Food, seasonal, environmental ) N Other N Drug/Latex Allergies/Reactions N Blood Transfusion N Breast Cancer Y Dermatologic Disorders N Lung Disease N Defects or Inherited Disease N Breast Problem N Gestational Diabetes N Hematologic disorders N Anesthesia Complications N History of STI N Deep Vein Thrombosis N Polycystic ovary syndrome N Anxiety Disorder N Autoimmune disease N Arthritis N Polyps N Infertility N Acid Reflux (GERD) N History of abnormal pap N Cancer N Varicosities N Stroke N Neurologic/Epilepsy N Endometriosis N High Cholesterol N Fibromyalgia N Headaches N Kidney Disease N Heart Problems N Thyroid Problems N Kidney or Bladder Problems N GI Problems N Eating Disorder [...] SNOMED-CT Code Diagnosis ICD10 Code Diagnosis Note [id number] Jacinta Juares MD [place] [address] [address] 11/16/2020 09:55:37 11/16/2020 10:47:54 Gynecologic examination 45474417 Z01.419 History of malignant neoplasm of breast 334002591 Z85.3 549244 Jacinta Juares MD [place] [address] [address] 07/29/2022 10:20:55 07/29/2022 12:19:49 History of osteoporosis 783379948 Z87.39 History of malignant neoplasm of breast 611347022 Z85.3 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 Health Concerns Section Related Observation LastModified by Organization Detai ls LastModified Time None Recorded Concern Status LastModified by Organization Details LastModified Time None Recorded Advance Directives Directive None Recorded Payers Encounter Date Sequence Insurance Name Policy Number Policy Russell Covered Member ID Russell Member ID Guarantor Name 11/16/2020 1 [place] Aarti H Diaz [id number] Aarti Diaz 07/29/2022 1 [place] Aarti H Diaz [id number] Aarti Diaz Notes Date Note Type [...] concerns-none Jacinta Juares MD [address], [place], [address], [facility] 11/23/2020 09:10:50 07/29/2022 text/html Patient is [...] concerns- Jacinta Juares MD [address], [place], [address], [facility] 07/29/2022 11:15:23 OBGyn Episode Ob Episode Information Episode Created Date Number of Fetuses Patient Bloodtype Patient rh Status Prepregnancy Weight lbs Domestic Partner Domestic Partner Phone Father Name Posting Clerk Status 11/13/20 20 1 CLOSED Fetus Data [...] Domestic Partner Domestic Partner Phone Father Name Posting Clerk Status 11/13/20 20 1 CLOSED Fetus Data [...]
--- OUTSIDE RECORDS SUMMARY | 2025-05-07 00:44 | XMS_ITS | Clinical Summary ---
Author Organization [facility] Address [address] [address] Care Team Providers Care Surgical Supplies Sterilizer Name Role Phone Jose Mace MD Primary Care Provider [phone] Pao Dietrich SKI PATROL Unavailable Allergies No known active allergies Medications psyllium seed, sugar, powder Active metFORMIN (GLUCOPHAGE) 1,000 mg tablet 1 tablet (1,000 mg total) 2 times daily 0 Active kaeuo-1y-sgg-ep a-fish oil 300-1,000 mg capsule 2 capsules [...] cancer 05/19/2020 Osteopenia of multiple sites 11/13/2019 supervisor intermediates (current) use of aromatase inhibitors 05/17/2019 Postmenopausal 05/17/2019 At risk for osteoporosis 05/17/2019 Malignant neoplasm of upper- outer quadrant of unspecified female breast 04/06/2018 Mammogram abnormal 09/16/2010 Encounters Date Type Department Care Team Description 05/02/[address] [facility] Surgery [address] [place] [address] [address] [place] [address] Pat Cox 04/07/[address] 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 2 para [...] compared to prior imaging studies performed at [facility] on 05/25/2021, 06/07/2022 and 06/09/2023. There [...] compared to prior imaging studies performed at [facility] on 05/25/2021, 06/07/2022 and 06/09/2023. There [...] Recently Relevant to Health Maintenance Insurance MEDICARE [facility] [employer] [address] [place] [id number] MEDICARE FOR LIFE [facility] MEDICARE MEDICARE [facility] Care Teams Surgical Supplies Sterilizer Relationship Specialty Start Date End Date Jose Mace MD [address] [place] [address] PCP - General 02/01/18 Pao Dietrich NP [address] [place] [address] Nurse Practitioner Medical Oncology 05/19/20
--- OUTSIDE RECORDS SUMMARY | 2025-05-07 00:44 | XMS_ITS | Encounter Summary ---
Author Organization [facility] Address [address] [place] [address] Phone Care Team Providers Care Billing Associate Name Role Phone Jose Mace MD Primary Care Provider [phone] Pao Dietrich WINDOW GLASS INSTALLER Unavailable [phone] Reason for Visit * Reason Onset Date Comments SCHEDULE UPDATE 05/03/2019 Encounter Details Date Type Department Care Team (Late st Contact Info) Description 05/03/2019 Telephone 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
--- OUTSIDE RECORDS SUMMARY | 2025-05-07 00:44 | XMS_ITS | Encounter Summary ---
Author Organization [facility] Address [address] [place] [address] Phone Care Team Providers Care Pcu Rn Name Role Phone Jose Mace MD Primary Care Provider [phone] Pao Dietrich TEACHER LEARNING DISABLED Unavailable [phone] Encounter Details Date Type Department Care Team (Late st Contact Info) Description 05/27/2019 Telephone [facility] Oncology [address] [place] [address] Eloise White Social History Tobacco [...] on file Legal Sex Female 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 Gender Identity Not on file Sexual Orientation Not on file Occupation Industry Job Start Date Job End Date Homemaker Not on file Not on file Not on file documented as of this encounter Plan of Treatment Not on file documented as of this encounter Visit Diagnoses Not on filedocumented in this encounter Care Teams Pcu Rn Relationship Specialty Start Date End Date Jose Mace MD [address] [facility] [address] [place] [id number] PCP - General 02/01/18 Pao Dietrich NP [address] [facility] [address] [place] [address] [place] [address] Nurse Practitioner Medical Oncology 05/19/20 documented as of this encounter
--- OUTSIDE RECORDS SUMMARY | 2025-05-07 00:44 | XMS_ITS | Referral Summary ---
Author Organization [facility] Address [address] [place] [address] Care Team Providers Care Deputy Prosecuting Attorney Name Role Phone Jose Mace MD Primary Care Provider Pao Dietrich COMIC BOOK WRITER Unavailable [phone] Encounters Date Type Department Care Team Description 05/02/2025 Telephone [facility] [address] [place] [address] Pat Cox 04/07/2025 Telephone [facility] [address] [place] [address] [address] [place] [address] Julee Galdamez CMA from Last 3 Months Allergies No known active allergies Medications psyllium seed, sugar, powder Active metFORMIN (GLUCOPHAGE) 1,000 mg tablet 1 tablet (1,000 mg total) 2 times daily 0 Active [id number] a-fish oil 300-1,000 mg capsule 2 capsules [...] cancer 05/19/2020 Osteopenia of multiple sites 11/13/2019 prison (current) use of aromatase inhibitors 05/17/2019 Postmenopausal [...] on file Legal Sex Female 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 Gender Identity Not on file Sexual Orientation [...] compared to prior imaging studies performed at [facility] on 05/25/2021, 06/07/2022 and [...] compared to prior imaging studies performed at [facility] on 05/25/2021, 06/07/2022 and [...] Recently Relevant to Health Maintenance Insurance MEDICARE [employer] MEDICARE [facility] MEDICARE MEDICARE FOR LIFE Care Teams Deputy Prosecuting Attorney Relationship Specialty Start Date End Date Jose Mace MD [address] [place] [address] PCP - General 02/01/18 Pao Dietrich NP [address] [place] [address] Nurse Practitioner Medical Oncology 05/19/20
--- OUTSIDE RECORDS SUMMARY | 2025-05-07 00:44 | XMS_ITS | Encounter Summary ---
Author Organization [facility] Address [address] [place] [address] Phone Care Team Providers Care Diamond Merchant Name Role Phone Jose Mace MD Primary Care Provider Pao Dietrich RN CLINICAL TRIALS Unavailable [phone] Reason for Visit * Reason Onset Date Comments PROVIDER & SCHEDULE UPDATE 03/28/2019 Encounter Details Date Type Department Care Team (Late st Contact Info) Description 03/28/2019 Telephone [facility] Oncology [address] [place] [address] Mimi Moreau [facility] PROVIDER & SCHEDULE UPDATE Social History Tobacco Use Types Packs/Day Years Used Date Smoking Tobacco: Never Smokeless Tobacco: Never Comments No Sex and Gender Information Value Date Recorded Sex Assigned at Not on file Legal Sex Female 8:09 PM CABLE TENDER Gender Identity Not on file Sexual Orientation Not on file documented as of this encounter Plan of Treatment Not on file documented as of this encounter Visit Diagnoses Not on filedocumented in this encounter Care Teams Diamond Merchant Relationship Specialty Start Date End Date Jose Mace MD [address] [place] [address] PCP - General 02/01/18 Pao Dietrich NP [address] [place] [address] Nurse Practitioner Medical Oncology 05/19/20 documented as of this encounter
--- OUTSIDE RECORDS SUMMARY | 2025-05-07 00:44 | XMS_ITS | Encounter Summary ---
Author Organization [facility] Address [address] [place] [address] Phone Care Team Providers Care Carding Doubler Name Role Phone Jose Mace MD Primary Care Provider [phone] Pao Dietrich FINANCIAL MANAGER Unavailable [phone] Encounter Details Date Type Department Care [...] on file Legal Sex Female 8:09 PM ROTARY CUTTER FEEDER Gender Identity Not on file Sexual Orientation [...] on filedocumented in this encounter Care Teams Carding Doubler Relationship Specialty Start Date End Date Jose Mace MD [address] [place] [address] PCP - General 02/01/18 Pao Dietrich NP [address] [place] [address] Nurse Practitioner Medical Oncology 05/19/20 documented as of this encounter
--- OUTSIDE RECORDS SUMMARY | 2025-05-07 00:44 | XMS_ITS | Encounter Summary ---
Author Organization [facility] Address [address] [place] [address] Phone Care Team Providers Care Vocational Counselor Name Role Phone Jose Mace MD Primary Care Provider [phone] Pao Dietrich SLUDGE MILL OPERATOR Unavailable [phone] Encounter Details Date Type Department Care [...] on file Legal Sex Female 8:09 PM FLOOD CONTROL ENGINEER Gender Identity Not on file Sexual Orientation [...] on filedocumented in this encounter Care Teams Vocational Counselor Relationship Specialty Start Date End Date Jose Mace MD [address] [place] [address] PCP - General 02/01/18 Pao Dietrich NP [address] [place] [address] Nurse Practitioner Medical Oncology 05/19/20 documented as of this encounter
[2025-05-07 06:50] VITALS: BP 158/68; PULSE 68; RESP 16; TEMP 36.2; O2SAT 99; BMI 29.0
[2025-05-07] MEDS: LACTATED RINGERS 1,000 ML 150 ML IV CONT (07:08)
[2025-05-07 07:09] LABS: Glucose Point of Care 123 mg/dl (65-105)
--- NOTE | 2025-05-07 07:50 | WPDANESEPPF ---
Anes - Initial Pre Proc Eval Procedure: Operation Date: 05/07/25 08:00 Proposed Procedures p Esophagogastroduodenoscopy & Colonoscopy - Juanito Barrios MD Date/Time: 05/07/25 07:50 Surgeon: Juanito Barrios MD Pre Op Diagnosis: GERD, Screening, Anemia Patient Data Age: 74 Gender: F Height: 1.65 m Weight: 79.3 kg Last Vital Signs Temp 36.2 C L 05/07/25 06:50 Pulse 68 05/07/25 06:50 Resp 16 05/07/25 06:50 BP 158/68 H 05/07/25 06:50 Pulse Ox 99 05/07/25 06:50 O2 Del Method Room Air 05/07/25 06:50 Allergies Allergy/AdvReac Type Severity Reaction Status Date / Time CORRINA Inhibitors Allergy Unknown Cough Verified 05/07/25 06:47 Home Medications ?Medication ?Instructions ?Recorded ?Confirmed ?Type empagliflozin 10 mg tablet 10 mg PO DAILY 05/13/20 05/07/25 History (Jardiance) omega-3 fatty acids 1,000 mg 2,000 mg PO BID 05/13/20 05/07/25 History capsule (Fish Oil Concentrate) cholecalciferol (vitamin D3) 50 50 mcg PO DAILY 11/03/21 05/07/25 History mcg (2,000 unit) tablet metformin 1,000 mg tablet See Rx Instructions .Route 06/20/24 05/07/25 Rx .COMPLEX #180 tabs dulaglutide 0.75 mg/0.5 mL See Rx Instructions .Route 09/24/24 05/07/25 Rx subcutaneous pen injector .COMPLEX #6 mL (Trulicity) gabapentin 600 mg tablet See Rx Instructions .Route 10/07/24 05/07/25 Rx .COMPLEX #360 tabs venlafaxine 75 mg capsule,extended See Rx Instructions .Route 04/08/25 05/07/25 Rx release 24 hr .COMPLEX #90 caps candesartan 32 mg tablet See Rx Instructions .Route 04/24/25 05/07/25 Rx .COMPLEX #90 tabs famotidine 40 mg tablet See Rx Instructions .Route 04/24/25 05/07/25 Rx .COMPLEX #180 tabs hydrochlorothiazide 12.5 mg tablet See Rx Instructions .Route 04/30/25 05/07/25 Rx .COMPLEX #90 tabs cyanocobalamin (vitamin B-12) 1,000 mcg subcut MONTHLY #1 ea 05/01/25 05/07/25 Rx 1,000 mcg/mL injection kit ondansetron 4 mg disintegrating 4 mg PO Q6H PRN nausea and 05/05/25 Rx tablet vomiting #4 tabs atorvastatin 40 mg tablet See Rx Instructions .Route 05/06/25 05/07/25 Rx .COMPLEX #90 tabs Laboratory Tests 05/07/25 07:07 POC Capillary Glucose 123 H mg/dl (65-105) Patient hx anesthesia problems: none Family hx anesthesia problems: none Results Review: All pre-operative results and documents have been reviewed as part of the pre-operative evaluation. [facility] Past Medical History Medical History Cognitive changes Left-sided back pain Iron deficiency anemia Angioedema Near syncope BMI 29.0-29.9,adult Urticaria Encounter for routine adult health examination without abnormal findings BMI 31.0-31.9,adult Occipital headache Microscopic hematuria Chronic scapular pain BMI 33.0-33.9,adult BMI 30.0-30.9,adult Hair loss Follow up Diastolic dysfunction Aortic valve sclerosis Anxiety with depression BMI 32.0-32.9,adult Chronic low back pain Murmur, cardiac Carotid bruit BMI 34.0-34.9,adult Resting tremor Bilateral leg pain Hearing loss GERD (gastroesophageal reflux disease) Osteopenia Hyperlipidemia Vitamin D deficiency Left shoulder pain Encounter for routine adult health examination with abnormal findings BMI 35.0-35.9,adult Insomnia Trigger finger of both hands Hx of breast cancer Colon cancer screening BMI 36.0-36.9,adult Encounter for Medicare annual wellness exam Family History Family History Grandparent Diabetes mellitus Other Family history of malignant neoplasm of breast Family history of malignant neoplasm of cervix Social History Social History Smoking status: Never smoker Second hand tobacco smoke exposure: No Alcohol intake: current Lack of Transportation: No Lack of Food: Never True Current Housing: I Have Housing Concerned About Future Housing: No Difficulty Paying Gas/Electric Bills: No Difficulty Paying for Meds: No Currently Unemployed: No Education: High School Diploma/GED Difficulty w/ Childcare or Family Care: No Gender identity (if verbalized by the patient): Female Anes - Eval Final PreProcedure Day of Procedure 05/07/25 07:50 Patient weight: obese Heart: regular rate and rhythm Lungs: clear to auscultation Airway: Mallampati scale class II Neurological: alert and oriented Last oral intake: >/= 8 hours ASA classification: III Emergent: no Anesthetic plan: proceed Anesthesia type and monitoring: general GIVS and standard monitoring Results Review: All pre-operative results and documents have been reviewed as part of the pre-operative evaluation. Informed Consent: The patient's anesthetic plan and its attendant risks and benefits were discussed with the patient/family/POA. Questions were solicited and answers provided to the satisfaction of the patient/family/POA.
--- NOTE | 2025-05-07 07:53 | PM.IMHP ---
H&P: HPI History of Present Illness Date/Time: 05/07/25 07:53 Chief Complaint: GERD-screening colonoscopy Narrative: the patient referred for EGD and colonoscopy. Her last colonoscopy was 10 years ago. She has occasional heartburn but no dysphagia. There is no history of weight loss or iron deficiency anemia. Review of Systems Review of Systems: All systems reviewed & are unremarkable except as noted in HPI and below PMFSH Past Medical History Medical History Cognitive changes Left-sided back pain Iron deficiency anemia Angioedema Near syncope BMI 29.0-29.9,adult Urticaria Encounter for routine adult health examination without abnormal findings BMI 31.0-31.9,adult Occipital headache Microscopic hematuria Chronic scapular pain BMI 33.0-33.9,adult BMI 30.0-30.9,adult Hair loss Follow up Diastolic dysfunction Aortic valve sclerosis Anxiety with depression BMI 32.0-32.9,adult Chronic low back pain Murmur, cardiac Carotid bruit BMI 34.0-34.9,adult Resting tremor Bilateral leg pain Hearing loss GERD (gastroesophageal reflux disease) Osteopenia Hyperlipidemia Vitamin D deficiency Left shoulder pain Encounter for routine adult health examination with abnormal findings BMI 35.0-35.9,adult Insomnia Trigger finger of both hands Hx of breast cancer Colon cancer screening BMI 36.0-36.9,adult Encounter for Medicare annual wellness exam Family History Family History Grandparent Diabetes mellitus Other Family history of malignant neoplasm of breast Family history of malignant neoplasm of cervix Social History Social History Smoking status: Never smoker Second hand tobacco smoke exposure: No Alcohol intake: current Lack of Transportation: No Lack of Food: Never True Current Housing: I Have Housing Concerned About Future Housing: No Difficulty Paying Gas/Electric Bills: No Difficulty Paying for Meds: No Currently Unemployed: No Education: High School Diploma/GED Difficulty w/ Childcare or Family Care: No Gender identity (if verbalized by the patient): Female Meds Home Medications and Allergies Home Medications ?Medication ?Instructions ?Recorded ?Confirmed ?Type empagliflozin 10 mg tablet 10 mg PO DAILY 05/13/20 05/07/25 History (Jardiance) omega-3 fatty acids 1,000 mg 2,000 mg PO BID 05/13/20 05/07/25 History capsule (Fish Oil Concentrate) cholecalciferol (vitamin D3) 50 50 mcg PO DAILY 11/03/21 05/07/25 History mcg (2,000 unit) tablet metformin 1,000 mg tablet See Rx Instructions .Route 06/20/24 05/07/25 Rx .COMPLEX #180 tabs dulaglutide 0.75 mg/0.5 mL See Rx Instructions .Route 09/24/24 05/07/25 Rx subcutaneous pen injector .COMPLEX #6 mL (Trulicity) gabapentin 600 mg tablet See Rx Instructions .Route 10/07/24 05/07/25 Rx .COMPLEX #360 tabs venlafaxine 75 mg capsule,extended See Rx Instructions .Route 04/08/25 05/07/25 Rx release 24 hr .COMPLEX #90 caps candesartan 32 mg tablet See Rx Instructions .Route 04/24/25 05/07/25 Rx .COMPLEX #90 tabs famotidine 40 mg tablet See Rx Instructions .Route 04/24/25 05/07/25 Rx .COMPLEX #180 tabs hydrochlorothiazide 12.5 mg tablet See Rx Instructions .Route 04/30/25 05/07/25 Rx .COMPLEX #90 tabs cyanocobalamin (vitamin B-12) 1,000 mcg subcut MONTHLY #1 ea 05/01/25 05/07/25 Rx 1,000 mcg/mL injection kit ondansetron 4 mg disintegrating 4 mg PO Q6H PRN nausea and 05/05/25 Rx tablet vomiting #4 tabs atorvastatin 40 mg tablet See Rx Instructions .Route 05/06/25 05/07/25 Rx .COMPLEX #90 tabs Allergies Allergy/AdvReac Type Severity Reaction Status Date / Time CORRINA Inhibitors Allergy Unknown Cough Verified 05/07/25 06:47 Vital Signs Vital Signs - 24 hr 05/07/25 06:50 Temperature 97.1 F L Pulse Rate 68 Respiratory Rate 16 Blood Pressure 158/68 H Pulse Oximetry 99 Oxygen Delivery Room Air Exam Const: General: cooperative and healthy appearing Resp: Effort & Inspection: normal respiratory effort and able to speak in complete sentences Auscultation: clear to auscultation bilaterally Cardio: Rate: regular rate Rhythm: regular rhythm GI: Inspection: normal to inspection GI Palp: No No hepatosplenomegaly present Auscultation: normal bowel sounds Rectal Exam: deferred Skin: General skin exam: normal color Psych: Appearance: grossly normal Mental Status: mental status grossly normal Assessment and Plan Assessment and plan (1) Colon cancer screening: Code(s): Z12.11 - Encounter for screening for malignant neoplasm of colon Status: Acute (2) GERD (gastroesophageal reflux disease): Qualifiers: Esophagitis presence: esophagitis presence not specified Qualified Code(s): K21.9 - Gastro-esophageal reflux disease without esophagitis Code(s): K21.9 - Gastro-esophageal reflux disease without esophagitis Status: Acute
--- NOTE | 2025-05-07 08:10 | SUR.OPER ---
EGD ended at 805. Colonoscopy began at 813.
--- NOTE | 2025-05-07 08:16 | S_PTH ---
PATIENT: Aarti Perales LOC: [facility] #:[id number] AGE/SX: 74/F ROOM: RE05/07/[address]: Juanito Barrios MD : 1950 BED: DIS: 05/07/2025 SPEC #: [id number] RECD: 05/07/25 10:23 STATUS: MILAD REQ #: [id number] SRINIVASAN: 05/07/25 08:[address]: Juanito Barrios DEPT: [facility] Surgical RECD BY: Yuni Gary ENTERED: 05/07/25 10:23 SP TYPE: Surgical OTHR DR: Jose Mace MD Tissues: A - Gastric Biopsy B - Gastric Biopsy C - Colon Polypectomy Procedures: Hematoxylin and Eosin Stain Gross and Microscopic Level 4
--- NOTE | 2025-05-07 08:24 | SUR.OPER ---
EGD: start 800, end 805 Colonoscopy: start 813, end 829.
[2025-05-07 08:32] VITALS: BP 139/97; PULSE 64; RESP 21; O2SAT 96
[2025-05-07 08:42] VITALS: BP 128/68; PULSE 55; RESP 17; O2SAT 99
[2025-05-07 08:52] VITALS: BP 149/78; PULSE 57; RESP 17; O2SAT 99
== END 2025-05-07 09:10 | disposition home or self-care (01) ==
PROVIDERS: PCP Internal Medicine; Referring Provider Internal Medicine; Visit Provider Internal Medicine Gastroenterology
PROC: 0DJ08ZZ Inspection of Upper Intestinal Tract, Via Natural or Artificial Opening Endoscopic (ICD-10-PCS; CPT 45378; principal; 2025-05-07 08:00)
DX: Z12.11 Encounter for screening for malignant neoplasm of colon (principal); K51.40 Inflammatory polyps of colon without complications; K57.30 Diverticulosis of large intestine without perforation or abscess without bleeding; K21.9 Gastro-esophageal reflux disease without esophagitis; K44.9 Diaphragmatic hernia without obstruction or gangrene; K22.2 Esophageal obstruction; K29.30 Chronic superficial gastritis without bleeding; K31.7 Polyp of stomach and duodenum; E66.9 Obesity, unspecified; Z68.29 Body mass index [BMI] 29.0-29.9, adult; Z79.84 Long term (current) use of oral hypoglycemic drugs; Z79.85 Long-term (current) use of injectable non-insulin antidiabetic drugs
CPT/HCPCS: 45385; 43239; 82948; 88305; J2003; J2704; J7120

== ENCOUNTER 2025-05-22 13:34 | Outpatient (CLI) | payer MEDICARE, OTHER, SELFPAY ==
--- NOTE | ~2025-05-22 | MR_ITS ---
MRI of the brain Clinical History: Other signs and symptoms involving cognitive function Technique: Axial and sagittal T1-weighted images were acquired. These were followed by axial T2-weigh yovanny, diffusion weighted, gradient, and FLAIR images. Following intravenous administration of 15 cc Mu ltiHance gadolinium, T1-weighted fat-sat imaging was performed in the axial and coronal planes. COMPARISON: 11/01/2023 Findings: No acute infarct, intracranial hemorrhage, mass lesion seen. There is mild chronic microvas cular ischemic changes in the periventricular white matter bilaterally. Ventricles and subarachnoid spaces are unremarkable. Orbits are unremarkable. Paranasal sinuses and m astoid air cells are clear. Major intracranial flow voids are intact. Sagittal midline structures are intact. No abnormal postcontrast enhancement identified. IMPRESSION: Mild chronic microvascular ischemic change, essentially stable from prior exam. No other significant findings. Reviewed, dictated and finalized at [facility].
== END 2025-05-22 13:35 | disposition home or self-care (01) ==
PROVIDERS: PCP Internal Medicine; Visit Provider Internal Medicine
DX: I67.82 Cerebral ischemia (principal); R41.89 Other symptoms and signs involving cognitive functions and awareness; R41.3 Other amnesia
CPT/HCPCS: 70553; A9577